=== PATIENT | male | born 1965 | race Caucasian/White ===

== ENCOUNTER 2017-09-19 07:46 | Outpatient (CLI) | payer OTHER ==
[2017-09-19] MEDS ORDERED: Iopamidol 370 76% 100 ML VIAL ONE (12:51)
== END 2017-09-19 07:47 | disposition home or self-care (01) ==
LOC: BICCT 07:46
PROVIDERS: ATTEND Urology
DX: N20.0 Calculus of kidney (principal); R31.0 Gross hematuria; N28.1 Cyst of kidney, acquired; K80.20 Calculus of gallbladder without cholecystitis without obstruction; I31.1 Chronic constrictive pericarditis
CPT/HCPCS: 74178

== ENCOUNTER 2017-10-22 11:27 | Outpatient (CLI) | payer OTHER | END 2017-10-22 11:28 | disposition home or self-care (01) | LOC: BICCT 11:27 | PROVIDERS: ATTEND Urology | DX: N20.2 Calculus of kidney with calculus of ureter (principal); N13.30 Unspecified hydronephrosis; K80.20 Calculus of gallbladder without cholecystitis without obstruction | CPT/HCPCS: 74176 ==

== ENCOUNTER 2018-11-19 12:06 | Outpatient (CLI) | payer OTHER ==
--- NOTE | 2018-11-20 07:48 | RAD ---
"PRELIMINARY REPORT" SUPINE ABDOMEN: HISTORY: Kidney stones. COMPARISON: 06/06/2018 FINDINGS: No evidence of urinary tract calcification identified. Bowel gas and stool obscure both vineet al outlines, especially on the left. Phleboliths in the pelvis are again noted. No interval change apparent. Transcribed Date/Time: 11/20/2018 7:46 AM
== END 2018-11-19 12:07 | disposition home or self-care (01) ==
LOC: RAD 12:06 → MERGE 12:06 → RAD 12:07
PROVIDERS: ATTEND Urology
DX: N20.0 Calculus of kidney (principal); R31.0 Gross hematuria
CPT/HCPCS: 36415; 74018; 80048; 81001; 87086

== ENCOUNTER 2018-12-05 14:36 | Emergency (ER) | payer OTHER ==
[~2018-12-05 14:36] MED LIST: ISOVUE-370 76%-LOCM 1 ML ONE
[2018-12-05] MEDS ORDERED: Morphine 4 MG/ML VIAL ONE (16:13)
[2018-12-05] MEDS ORDERED: Ondansetron PF 4 MG/2 ML Vial ONE (16:13)
[2018-12-05 16:24] LABS: Bilirubin Negative (Negative); Blood, Urine Negative (Negative); Clarity Clear (Clear); Glucose, Urine (Dipstick) Normal (Negative); Leukocyte Negative Leu/uL (Negative); Nitrite Negative (Negative); Protein, Urine (Dipstick) Negative (Neg-Trace); Urobilinogen Normal mg/dL (Less than 2)
[2018-12-05 17:32] LABS: #Eosinphils 0.2 thou/uL (0.0-0.7); #Monocytes 0.5 thou/uL (0.11-0.59); #Neutrophils 5.2 thou/uL (1.40-6.50); %Basophils 0.5 % (0.0-1.0); %Eosinophils 1.8 % (0.0-10.0); %Lymphocytes 33.6 % (21.0-51.0); %Monocytes 5.8 % (0.0-10.0); %Neutrophils 58.2 % (42.0-75.0); Hemoglobin 14.6 g/dL (14.0-18.0); Mean Corpuscular HGB CONC 33.9 g/dL (32.0-36.0); Mean Corpuscular Hemoglobin 29.2 pg (27.0-31.0); Mean Corpuscular Volume 86.1 fL (78.0-98.0); Mean Platelet Volume 6.9 fL (7.4-10.4); Platelet Count 326 thou/uL (130-400); RBC Distribution Width 12.5 % (11.5-14.5); Red Blood Cell (RBC) Count 4.98 mill/uL (4.70-6.10); White Blood Cell (WBC) Count 8.9 thou/uL (4.8-10.8)
--- NOTE | 2018-12-05 17:38 | CT ---
CT ABDOMEN WITH CONTRAST CT PELVIS WITH CONTRAST: DATE: 12/05/2018 HISTORY: 53-year-old male with left-sided abdominal pain and left flank pain. Nausea. COMPARISON: 06/06/2018 TECHNIQUE: IV injection of iodinated contrast media: administered. Oral contrast media:Not administered FINDINGS: Punctate 2 mm calculus at lower pole calyx of right kidney, visible only on coronal and sagittal rosi nstructions. No hydronephrosis bilaterally. Nephrograms are bilaterally symmetrical, with no evidence of pyeloneph ritis. Calcified gallstones are visible. No signs of acute cholecystitis. Unremarkable pancreas, spleen, adrenals, abdominal aorta, urinary bladder. Suture lines around cecum and distal ileum. Appendix not identified. No signs of colonic diverticulitis. No small bowel dilation. No ascites or pneumoperitoneum. Lung bas es clear. No abscess in intrapelvic or intra-abdominal cavity. Within the limitations of comparing this contrast enhanced CT with the previous noncontrast CT, no significant interval change is detecte d. IMPRESSION: 1. No acute findings. 2. Cholelithiasis. 3. Postsurgical changes of cecum and distal ileum. 4. Mild nephrolithiasis consisting of a single punctate 2 mm right renal calculus.
[2018-12-05 17:46] LABS: ALT (SGPT) 24 U/L (8-55); AST (SGOT) 15 U/L (5-34); Albumin 4.1 g/dL (3.5-5.0); Alkaline Phosphatase 63 U/L (40-110); Anion Gap 11 mmol/L (10-20); BUN (Urea Nitrogen) 12 mg/dL (8.4-25.7); Bilirubin, Total 0.6 mg/dL (0.2-1.2); Calc. Creatinine Clearance 0 mL/min (70-130); Calcium 8.1 mg/dL (7.8-10.44); Carbon Dioxide 26 mmol/L (22-29); Chloride 105 mmol/L (98-107); Estimated GFR-MDRD 85; Globulin 2.8 g/dL (2.4-3.5); Glucose 84 mg/dL (70-105); Lipase 29 U/L (8-78); Potassium 3.8 mmol/L (3.5-5.1); Protein, Total 6.9 g/dL (6.0-8.3); Sodium 138 mmol/L (136-145)
== END 2018-12-05 18:30 | disposition home or self-care (01) ==
LOC: ERS 14:36
DX: K80.20 Calculus of gallbladder without cholecystitis without obstruction (principal)
CPT/HCPCS: 36415; 74177; 80053; 81003; 83605; 83690; 85025; 96361; 96374; 96375; J2270; J2405; Q9966

== ENCOUNTER 2019-03-04 07:12 | Day surgery (SDC) | payer OTHER ==
[2019-03-03 09:13] VITALS: BMI 21.6
[2019-03-04 10:09] LABS: #Eosinphils 0.1 thou/uL (0.0-0.7); #Lymphocytes 1.6 thou/uL (1.20-3.40); #Monocytes 0.5 thou/uL (0.11-0.59); #Neutrophils 5.3 thou/uL (1.40-6.50); %Basophils 0.2 % (0.0-1.0); %Eosinophils 1.4 % (0.0-10.0); %Lymphocytes 21.8 % (21.0-51.0); %Monocytes 6.2 % (0.0-10.0); %Neutrophils 70.5 % (42.0-75.0); Hemoglobin 14.4 g/dL (14.0-18.0); Mean Corpuscular HGB CONC 33.8 g/dL (32.0-36.0); Mean Corpuscular Hemoglobin 29.6 pg (27.0-31.0); Mean Corpuscular Volume 87.7 fL (78.0-98.0); Mean Platelet Volume 7.3 fL (7.4-10.4); Platelet Count 303 thou/uL (130-400); RBC Distribution Width 12.2 % (11.5-14.5); Red Blood Cell (RBC) Count 4.87 mill/uL (4.70-6.10); White Blood Cell (WBC) Count 7.6 thou/uL (4.8-10.8)
[2019-03-04] MEDS ORDERED: PHENYLEPHRINE-NS 100 MCG/ML 10 ML SYRINGE ONE (10:20)
[2019-03-04] MEDS ORDERED: Ropivacaine 0.2% HCl/PF (40 MG/20 ML VIAL) ONE (10:20)
[2019-03-04] MEDS ORDERED: Ketorolac Tromethamine 30 MG/ML VIAL ONE (10:20)
[2019-03-04] MEDS ORDERED: ePHEDrine/0.9% NaCl/PF SYRINGE 50 mg/10 ml ONE (10:20)
[2019-03-04] MEDS ORDERED: PROPOFOL 200 MG/20 ML VIAL ONE (10:20)
[2019-03-04] MEDS ORDERED: Ondansetron PF 4 MG/2 ML Vial ONE (10:20)
[2019-03-04] MEDS ORDERED: diphenhydrAMINE 50 MG/ML VIAL ONE (10:20)
[2019-03-04] MEDS ORDERED: Dexamethasone 20 MG/5 ML VIAL ONE (10:20)
[2019-03-04] MEDS ORDERED: Ropivacaine 0.5% HCl/PF (150 MG/30 ML VIAL) ONE (10:20)
[2019-03-04] MEDS ORDERED: Fentanyl 100 MCG/2 ML VIAL ONE ×2 (10:38→12:21)
[2019-03-04] MEDS ORDERED: Midazolam HCl 2 mg/2 ml Vial ONE (10:38)
[2019-03-04] MEDS ORDERED: Zolpidem Tartrate 5 MG TAB PO PRN (11:25)
[2019-03-04] MEDS ORDERED: Ropivacaine 0.2% 550 ML 550 ML NERVE BLCK SCH (11:25)
[2019-03-04] MEDS ORDERED: traMADol HCl 50 MG TAB PO PRN ×2 (11:25)
[2019-03-04] MEDS ORDERED: HYDROcodone/Acetaminophen 10/325 mg Tablet PO PRN ×2 (11:25)
[2019-03-04] MEDS ORDERED: Promethazine HCl 25 MG/ML VIAL IM PRN (11:25)
[2019-03-04] MEDS ORDERED: Fentanyl 100 MCG/2 ML VIAL SLOW IVP PRN (11:25)
[2019-03-04] MEDS ORDERED: Ondansetron PF 4 MG/2 ML Vial IVP PRN (11:25)
[2019-03-04] MEDS ORDERED: Acetaminophen 325 MG TAB PO PRN (11:26)
[2019-03-04] MEDS ORDERED: Ketorolac Tromethamine 30 MG/ML VIAL IVP SCH (12:00)
[2019-03-04] MEDS ORDERED: Bupivacaine PF 0.5% 30 ML VIAL ONE (12:16)
[2019-03-04] MEDS ORDERED: Bacitracin Zinc Ointment 30 gm TUBE ONE (12:17)
[2019-03-04] MEDS ORDERED: HYDROcodone/Acetaminophen 5/325 mg Tablet ONE (18:29)
--- NOTE | 2019-03-05 00:44 | OP ---
DATE OF PROCEDURE: 03/04/2019 PREOPERATIVE DIAGNOSES: 1. Left wrist synovitis. 2. Left wrist central triangular fibrocartilage complex tear. 3. Left possible scapholunate ligament tear. 4. Ulnocarpal impingement with ulnar positive wrist by 2 to 2.5 mm more than the opposite side. POSTOPERATIVE DIAGNOSES: 1. Left wrist synovitis. 2. Left wrist central triangular fibrocartilage complex tear. 3. Left possible scapholunate ligament tear. 4. Ulnocarpal impingement with ulnar positive wrist by 2 to 2.5 mm more than the opposite side. FINDINGS: 1. No scapholunate interosseous membrane tear, only a partial small 3 mm opening in the lunate triquetral ligament on its direct central surface and not the volar aspect or the dorsal aspect. No instability. 2. 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 3. A longitudinal tear with thick edge. When debrided, it was still only 1 to 2 mm wide at its greatest and was repairable as it was central to peripheral and dorsal. 4. Definite ulnocarpal impingement as well. PROCEDURES PERFORMED: 1. Left wrist arthroscopic synovectomy. 2. Left wrist arthroscopic debridement of chondral lesions lunate. 3. Left wrist open ulnar shortening and RAYHACK osteotomy. 4. Left wrist open triangular fibrocartilage repair. 5. Left wrist C-arm supervision. 6. Left wrist application of long-arm splint. ESTIMATED BLOOD LOSS: 20 mL. SPECIMENS: None. TOURNIQUET TIME: 120 minutes total (47 minutes up, then deflated for 20 minutes and then up again for 73 minutes). INDICATIONS: The patient had MRI findings exam consistent with triangular fibrocartilage tear. It appeared more central, but did not seem widely displaced, had a dye leak which appeared to be through the scapholunate area, but the patient had definite ulnocarpal impingement clinically and radiographically with a 2.5 mm more ulnar positive ulna than seen on the contralateral side. He had no relief with conservative treatment to include bracing, therapy, and medications. DESCRIPTION OF PROCEDURE: After successful general endotracheal anesthesia, the limb was prepped and draped. Time-out was done appropriately. The limb was then placed in a finger traction with arthroscopic arm perez well padded after prepping and draping sterilely. We then established the 3, 4, 6U, and 6R portals and initially visualization from the 3, 4 portal, we visualized the chondral tear on the ulnar aspect of the lunate, there was some question of fraying versus complete tear with probing of the lunate to triquetral ligament and there was definite thick chondral band over a 1.5 cm long triangular fibrocartilage tear that began centrally, but then appeared to transect more dorsal and peripheral. The ulnar aspects were negative. After we finished the synovectomy, we visualized I was able to move the chondromalacia off the ulnar aspect of the lunate and we could visualize that the joint was not unstable at the lunotriquetral area or the tear was not complete. For this reason, no undue pressure over the carpal repairs were, we finished the synovectomy complete of the wrist on the left side and debrided the tear, but felt that it might respond to fixation. We then removed the arthroscope, exsanguinated the limb, inflated the tourniquet, knowing about the ulnocarpal impingement after debridement of chondromalacia through the shaver and the scope, we then made our zigzag incision just long enough to place the RAYHACK plate, carried it down to periosteum and stripped it. Then, we put the plate on the bone. We did a standard drill, measured tap screw technique, put 3 holes proximal, 1 hole very distal after attaching to the central portion of palmar ulna where the best flat surface was located. We then used 2.5 drill bit along with a tap to place a strong screw purchase possible through the cut guide. We then performed a cut of 2 mm, removed it, removed the wafer created by this and then replaced the drill holes with the plate again. With the plate itself at this time, it was very secure, and we were able to place the coaptation device without complication and coapted the entire area. It was nearly anatomic position. We then placed a lag screw across it, also 3.5 with drill, measure, tap techniques, and then 3 screws distally. The patient then had the tourniquet deflated. We closed the fascia after obtaining hemostasis at the ulna forearm incision with a running 0 Vicryl, 3-0 Monocryl and nylon was used for the closure of subcutaneous tissue and skin reapproximated with 4-0 nylon interrupted simple pattern. We then reinflated the tourniquet after 20 minutes hiatus, 250 mmHg pressure, made a zigzag incision over the lunate triquetral area. It was here that we saw the tear and pulled the lunate triquetral joint, found it was not unstable. There was only a small 2 mm hole, but it was not unstable, so we did not perform a repair or reconstruction. We had the arthrotomy expanded for better visualization, saw the debrided tear and felt it was debrided enough, but had since it was central and longitudinal toward the dorsal ulnar aspect of the TFCC. We then placed multiple [id number] Prolene, tied them on themselves in a standard method for arthroscopic procedures and then the patient had hemostasis and we closed the joint wound as well. We could see the synovectomy was completely done and there was excellent visualization. We found no hole volarly with probing and palmar flexion. We then were able to reapproximate the TFCC tear to a point where all was disappeared using 4 sutures of 4-0 Prolene. The patient then had the joint capsule closed, 2-0 Vicryl was used in a running fashion, retinaculum repaired at the ECU and with the retinaculum closed, we turned to the skin. We then made a retinaculum repair after the joint repair, joint repair being done with 2-0 Vicryl in the [id number], and the retinacular tear was done with interrupted [id number] using 3-0 Monocryl. We then used 4-0 Monocryl subcutaneous closure with hemostasis remaining, 4-0 nylon for the epidermal closure and we closed the radial portal as well with 4-0 nylon. Bulky dressing was applied. Before the patient's wound was closed, in order to protect the debridement of the lunate triquetral area where we had partial tear, we passed 2 K-wires under C-arm supervision across the lunate triquetrum and to the lunate reduced in this interval and they were radiographically in excellent position. A sugar-tong splint was applied after final epidermal closure at all sites. Since he had a block, no further anesthetic agent was given and the sugar-tong splint was in excellent position. He went to the recovery from operating room without evidence of anesthetic or operative complication. Job ID: [id number]
--- NOTE | 2019-03-06 08:04 | RAD ---
EXAM: XR Forearm Lt 2 View STANDARD DATE: 03/04/2019 12:00 AM INDICATION: Osteotomy of the left arm with TFCC repair COMPARISON: None. FINDIN separate fluoroscopic spot images were submitted of the distal left forearm and left wris t. Submitted images demonstrate obliquely oriented osteotomy of the distal ulnar shaft with plate and screw fixation. The distal radial ulnar joint alignment is neutral. Additional submitted images d emonstrate instrumentation within the distal carpal ulnar joint. Subsequent images demonstrate placement of 2 separate smooth Richardson wires transfixing the triquetrum and lunate. Carpal alignmen t appears within normal limits. The total fluoroscopic time was 42.7 seconds. Total exposure was 0.77 mGy. IMPRESSION:Intraoperative C-arm spot films from a distal left ulna osteotomy and TFCC repair.
== END 2019-03-04 18:45 | disposition home or self-care (01) ==
LOC: SDC 07:12
PROVIDERS: ATTEND Orthopaedic Surgery Hand Surgery
PROC: 0RQP0ZZ Repair Left Wrist Joint, Open Approach (ICD-10-PCS; principal; 2019-03-04)
PROC: 0RBP4ZZ Excision of Left Wrist Joint, Percutaneous Endoscopic Approach (ICD-10-PCS; principal; 2019-03-04)
PROC: 0PHL04Z Insertion of Internal Fixation Device into Left Ulna, Open Approach (ICD-10-PCS; principal; 2019-03-04)
PROC: 0PBL0ZZ Excision of Left Ulna, Open Approach (ICD-10-PCS; principal; 2019-03-04)
DX: S63.592A Other specified sprain of left wrist, initial encounter (principal); M65.88 Other synovitis and tenosynovitis, other site; M25.832 Other specified joint disorders, left wrist; M94.232 Chondromalacia, left wrist; Z88.8 Allergy status to other drugs, medicaments and biological substances
CPT/HCPCS: 76000; 85025; A4306; J0690; J2250; J2795; J3010; S0020

== ENCOUNTER 2019-05-02 05:43 | Day surgery (SDC) | payer OTHER ==
[2019-05-01 14:52] VITALS: BMI 21.6
[2019-05-02 06:25] LABS: #Basophils 0.1 thou/uL (0.0-0.2); #Eosinphils 0.3 thou/uL (0.0-0.7); #Lymphocytes 2.6 thou/uL (1.20-3.40); #Monocytes 0.5 thou/uL (0.11-0.59); #Neutrophils 5.9 thou/uL (1.40-6.50); %Basophils 0.7 % (0.0-1.0); %Eosinophils 2.8 % (0.0-10.0); %Lymphocytes 28.2 % (21.0-51.0); %Monocytes 5.5 % (0.0-10.0); %Neutrophils 62.9 % (42.0-75.0); Hemoglobin 14.5 g/dL (14.0-18.0); Mean Corpuscular Hemoglobin 29.6 pg (27.0-31.0); Mean Corpuscular Volume 89.6 fL (78.0-98.0); Mean Platelet Volume 7.4 fL (7.4-10.4); Platelet Count 329 thou/uL (130-400); RBC Distribution Width 12.7 % (11.5-14.5); Red Blood Cell (RBC) Count 4.92 mill/uL (4.70-6.10); White Blood Cell (WBC) Count 9.3 thou/uL (4.8-10.8)
[2019-05-02] MEDS ORDERED: Bacitracin Zinc Ointment 30 gm TUBE ONE (06:36)
[2019-05-02] MEDS ORDERED: Bupivacaine PF 0.5% 30 ML VIAL ONE (06:36)
[2019-05-02] MEDS ORDERED: Midazolam HCl 2 mg/2 ml Vial ONE (06:43)
[2019-05-02] MEDS ORDERED: Fentanyl 100 MCG/2 ML VIAL ONE (06:43)
[2019-05-02] MEDS ORDERED: Meperidine HCl/PF 25 MG/ML VIAL ONE (08:37)
--- NOTE | 2019-05-02 09:36 | OP ---
DATE OF PROCEDURE: 05/02/2019 PREOPERATIVE DIAGNOSIS: Left wrist status lunate triquetrum K-wires deep, finding deep wires to the point, one was buried underneath the tendon, extensor carpi ulnaris. PROCEDURES PERFORMED: 1. Left wrist removal of deep wire. 2. C-arm supervision. COMPLICATIONS: None. TOURNIQUET TIME: 16 minutes. INDICATION: The patient is now three months after a medial triquetrum ligament repair, triangular fibrocartilage procedure, debridement, resection, and ulnar shortening. He has had excellent result today, but one wire started to protrude and we moved to surgery after two weeks because of marked pain. DESCRIPTION OF PROCEDURE: After successful general endotracheal anesthesia, limb prepped and draped. C-arm was brought to the field. We identified the wires via C-arm in triangulation pattern. We made a 1 cm incision and carried it through skin and subcutaneous tissue. One K-wire was already subcutaneous, the other K-wire, took a while to locate it, it was buried underneath the tendon without violating the tendon. We minimally opened the sheath, found the wire in the frontal sagittal plane and removed it slowly. We irrigated the area. We released the tourniquet. We closed it with a simple 3-0 nylon, 4-0 nylon in a simple pattern, and placed a soft dressing on the wound. We gave him a total of 10 mL of 0.5% Marcaine block, 7 mL before incision and 3 after. He left the operating room without evidence of anesthetic or operative complication. Job ID: [id number]
--- NOTE | 2019-05-02 09:56 | RAD ---
INTRAOPERATIVE IMAGING OF THE LEFT WRIST: DATE: 04/27/2019. COMPARISON: None. HISTORY: Hardware removal. FINDINGS: Partially visualized fusion hardware of the distal ulnar shaft noted. Detailed assessment is limited on this examination secondary to technique. No acute osseous abnormality. IMPRESSION: No acute findings. POS: TPC
[2019-05-02] MEDS ORDERED: Dexamethasone 20 MG/5 ML VIAL ONE (11:25)
[2019-05-02] MEDS ORDERED: Ondansetron PF 4 MG/2 ML Vial ONE (11:25)
[2019-05-02] MEDS ORDERED: PROPOFOL 200 MG/20 ML VIAL ONE (11:25)
[2019-05-02] MEDS ORDERED: diphenhydrAMINE 50 MG/ML VIAL ONE (11:25)
[2019-05-02] MEDS ORDERED: Ketorolac Tromethamine 30 MG/ML VIAL ONE (11:25)
== END 2019-05-02 10:18 | disposition home or self-care (01) ==
LOC: SDC 05:43
PROVIDERS: ATTEND Orthopaedic Surgery Hand Surgery
PROC: 0PPN04Z Removal of Internal Fixation Device from Left Carpal, Open Approach (ICD-10-PCS; principal; 2019-05-02)
DX: T84.84XA Pain due to internal orthopedic prosthetic devices, implants and grafts, initial encounter (principal); T84.290A Other mechanical complication of internal fixation device of bones of hand and fingers, initial encounter; M77.12 Lateral epicondylitis, left elbow; M79.2 Neuralgia and neuritis, unspecified; K52.9 Noninfective gastroenteritis and colitis, unspecified; Z87.891 Personal history of nicotine dependence; Z79.899 Other long term (current) drug therapy; Z88.1 Allergy status to other antibiotic agents; Z90.49 Acquired absence of other specified parts of digestive tract
CPT/HCPCS: 76000; 85025; J0690; J1100; J1200; J1885; J2175; J2250; J2405; J2704; J3010; J3490; S0020

== ENCOUNTER 2019-06-02 12:48 | Emergency (ER) | payer OTHER ==
[2019-06-02 13:29] LABS: Bacteria/HPF None Seen HPF (None Seen); Bilirubin Negative (Negative); Blood, Urine Negative (Negative); Clarity Clear (Clear); Glucose, Urine (Dipstick) Normal (Negative); Leukocyte 75 Leu/uL (Negative); Nitrite Negative (Negative); Protein, Urine (Dipstick) Negative (Neg-Trace); RBC/HPF 0-3 HPF (0-3); Squamous Epithelial None Seen HPF (0-3); Urobilinogen Normal mg/dL (Less than 2)
[2019-06-02] MEDS ORDERED: Morphine 4 MG/ML VIAL ONE (13:38)
[2019-06-02 13:51] LABS: #Eosinphils 0.1 thou/uL (0.0-0.7); #Lymphocytes 2.3 thou/uL (1.20-3.40); #Monocytes 0.5 thou/uL (0.11-0.59); #Neutrophils 4.3 thou/uL (1.40-6.50); %Basophils 0.1 % (0.0-1.0); %Lymphocytes 32.3 % (21.0-51.0); %Monocytes 7.4 % (0.0-10.0); %Neutrophils 59.3 % (42.0-75.0); Hemoglobin 14.1 g/dL (14.0-18.0); Mean Corpuscular HGB CONC 33.8 g/dL (32.0-36.0); Mean Corpuscular Hemoglobin 29.6 pg (27.0-31.0); Mean Corpuscular Volume 87.6 fL (78.0-98.0); Platelet Count 370 thou/uL (130-400); RBC Distribution Width 12.3 % (11.5-14.5); Red Blood Cell (RBC) Count 4.75 mill/uL (4.70-6.10); White Blood Cell (WBC) Count 7.2 thou/uL (4.8-10.8)
[2019-06-02 14:13] LABS: ALT (SGPT) 38 U/L (8-55); AST (SGOT) 24 U/L (5-34); Albumin 4.3 g/dL (3.5-5.0); Alkaline Phosphatase 71 U/L (40-110); Anion Gap 14 mmol/L (10-20); BUN (Urea Nitrogen) 13 mg/dL (8.4-25.7); Bilirubin, Total 0.9 mg/dL (0.2-1.2); Calc. Creatinine Clearance 0 mL/min (70-130); Calcium 8.4 mg/dL (7.8-10.44); Carbon Dioxide 26 mmol/L (22-29); Chloride 104 mmol/L (98-107); Estimated GFR-MDRD 73; Globulin 2.8 g/dL (2.4-3.5); Glucose 79 mg/dL (70-105); Lipase 33 U/L (8-78); Potassium 3.8 mmol/L (3.5-5.1); Protein, Total 7.1 g/dL (6.0-8.3); Sodium 140 mmol/L (136-145)
--- NOTE | 2019-06-02 14:29 | ULT ---
GALLBLADDER ULTRASOUND: HISTORY: Right upper quadrant abdominal pain FINDINGS: The liver demonstrates increased echotexture without focal mass or intrahepatic biliary ductal dilata tion. Multiple shadowing gallstones are seen without gallbladder wall thickening or pericholecystic fluid a re seen. The right kidney and pancreas are normal. The common duct [id number] in diameter. No free fluid is seen in the Espinosa's pouch. IMPRESSION: 1. Fatty liver 2. Cholelithiasis
== END 2019-06-02 14:27 | disposition home or self-care (01) ==
LOC: ERS 12:48
DX: K80.20 Calculus of gallbladder without cholecystitis without obstruction (principal); Z87.442 Personal history of urinary calculi; Z79.899 Other long term (current) drug therapy
CPT/HCPCS: 76705; 80053; 81003; 81015; 83690; 85025; 96361; 96374; J2270

== ENCOUNTER 2019-08-01 05:24 | Day surgery (SDC) | payer OTHER ==
[2019-07-30 10:17] VITALS: BMI 21.6
[2019-08-01] MEDS ORDERED: Lidocaine 1% w/Epinephrine 1:100K 20 ML VIAL ONE (06:54)
[2019-08-01] MEDS ORDERED: Bupivacaine 0.25% HCL 30 ML VIAL ONE (06:54)
[2019-08-01] MEDS ORDERED: Fentanyl 250 MCG/5 ML VIAL ONE (06:56)
[2019-08-01] MEDS ORDERED: Meperidine HCl/PF 25 MG/ML VIAL ONE (08:44)
[2019-08-01] MEDS ORDERED: HYDROcodone/Acetaminophen 5/325 mg Tablet ONE (09:31)
[2019-08-01] MEDS ORDERED: Dexamethasone 20 MG/5 ML VIAL ONE (14:48)
[2019-08-01] MEDS ORDERED: Glycopyrrolate 0.2 MG/ML 5 ML SYRINGE ONE (14:48)
[2019-08-01] MEDS ORDERED: Ondansetron PF 4 MG/2 ML Vial ONE (14:48)
[2019-08-01] MEDS ORDERED: PROPOFOL 200 MG/20 ML VIAL ONE (14:48)
[2019-08-01] MEDS ORDERED: PHENYLEPHRINE-NS 100 MCG/ML 10 ML SYRINGE ONE (14:48)
[2019-08-01] MEDS ORDERED: Lidocaine 1% PF 5 ML VIAL ONE (14:48)
[2019-08-01] MEDS ORDERED: Ketorolac Tromethamine 30 MG/ML VIAL ONE (14:48)
[2019-08-01] MEDS ORDERED: Rocuronium Bromide 10 MG/ML (10ML VIAL) ONE (14:48)
--- NOTE | 2019-08-01 14:52 | OP ---
DATE OF PROCEDURE: 08/01/2019 PREOPERATIVE DIAGNOSIS: Symptomatic cholelithiasis. PROCEDURE PERFORMED: Laparoscopic cholecystectomy. INDICATIONS: A 53-year-old male, who has been having epigastric abdominal pain. Ultrasound showed cholelithiasis. FINDINGS: Relatively small contracted gallbladder. There were adhesions present, both periumbilical and around the gallbladder. DESCRIPTION OF PROCEDURE: After informed consent was obtained, the patient was taken to the operating room, given general endotracheal anesthesia, placed in the supine position. Abdomen was prepped and draped in usual fashion. Local anesthesia was infiltrated subcutaneously and deep, and a 5-mm incision was performed in right subcostal. Veress needle inserted. Drop test performed. Pneumoperitoneum was created to a volume of 2 L of carbon dioxide. Utilizing a bladeless 5-mm trocar and 0-degree laparoscope, direct visual entry into the abdominal cavity was performed. Pneumoperitoneum was created to a pressure of 15 mmHg. There was bowel against the anterior abdominal wall we had a low midline incision. I went above this area and placed a 12-mm port in the midline. Then, two other 5-mm ports subcostal. The gallbladder was grasped, advanced superiorly and the adhesions were lysed using blunt and sharp dissection. The peritoneum opened and the cystic duct and cystic artery in critical view dissected out. The gallbladder then removed from its fossa utilizing electrocautery, removed from the abdomen through the umbilical port. Hemostasis was assured. Trocars and retractors were removed. The fascia closed with interrupted 0 Vicryl suture. The skin closed with interrupted 4-0 Rapide. Dermabond applied. The patient tolerated the procedure well, transferred to Recovery in good condition. Sponge and needle count verified correct x2. Job ID: [id number]
== END 2019-08-01 10:07 | disposition home or self-care (01) ==
LOC: SDC 05:24
PROVIDERS: ATTEND Surgery
PROC: 0FT44ZZ Resection of Gallbladder, Percutaneous Endoscopic Approach (ICD-10-PCS; principal; 2019-08-01)
DX: K80.10 Calculus of gallbladder with chronic cholecystitis without obstruction (principal); K52.9 Noninfective gastroenteritis and colitis, unspecified; Z79.899 Other long term (current) drug therapy; Z87.891 Personal history of nicotine dependence; Z88.1 Allergy status to other antibiotic agents
CPT/HCPCS: 88304; J0694; J1100; J1885; J2001; J2175; J2405; J2704; J3010; S0020

== ENCOUNTER 2020-05-20 12:21 | Emergency (ER) | payer OTHER ==
[2020-05-20 12:59] LABS: #Eosinphils 0.2 thou/uL (0.0-0.7); #Lymphocytes 2.2 thou/uL (1.20-3.40); #Monocytes 0.5 thou/uL (0.11-0.59); #Neutrophils 5.3 thou/uL (1.40-6.50); %Basophils 0.3 % (0.0-1.0); %Eosinophils 2.4 % (0.0-10.0); %Lymphocytes 26.4 % (21.0-51.0); %Monocytes 6.1 % (0.0-10.0); %Neutrophils 64.9 % (42.0-75.0); Hemoglobin 13.4 g/dL (14.0-18.0); Mean Corpuscular HGB CONC 32.5 g/dL (32.0-36.0); Mean Corpuscular Hemoglobin 28.1 pg (27.0-31.0); Mean Corpuscular Volume 86.4 fL (78.0-98.0); Platelet Count 325 thou/uL (130-400); RBC Distribution Width 12.4 % (11.5-14.5); Red Blood Cell (RBC) Count 4.75 mill/uL (4.70-6.10); White Blood Cell (WBC) Count 8.2 thou/uL (4.8-10.8)
[2020-05-20 13:05] LABS: INR-International Normal Ratio 0.9; PTT 28.3 sec (22.9-36.1); Prothrombin Time 12.2 sec (12.0-14.7)
[2020-05-20 13:21] LABS: ALT (SGPT) 11 U/L (8-55); AST (SGOT) 14 U/L (5-34); Alkaline Phosphatase 69 U/L (40-110); Anion Gap 12 mmol/L (10-20); BUN (Urea Nitrogen) 15 mg/dL (8.4-25.7); Bilirubin, Total 0.4 mg/dL (0.2-1.2); Calc. Creatinine Clearance 0 mL/min (70-130); Calcium 8.2 mg/dL (7.8-10.44); Carbon Dioxide 25 mmol/L (22-29); Chloride 110 mmol/L (98-107); Globulin 2.7 g/dL (2.4-3.5); Glucose 97 mg/dL (70-105); Potassium 3.9 mmol/L (3.5-5.1); Protein, Total 6.7 g/dL (6.0-8.3); Sodium 143 mmol/L (136-145)
[2020-05-20] MEDS ORDERED: HYDROcodone/Acetaminophen 10/325 mg Tablet ONE (13:24)
[2020-05-20] MEDS ORDERED: Iopamidol-370 76% 500 ML 1 ML ONE (14:50)
== END 2020-05-20 15:04 | disposition home or self-care (01) ==
LOC: ERS 12:21
DX: K92.1 Melena (principal)
CPT/HCPCS: 36415; 74177; 80053; 82270; 85025; 85610; 85730; 86850; 86900; 86901; Q9967

== ENCOUNTER 2020-11-19 08:43 | Emergency (ER) | payer OTHER ==
[2020-11-19] MEDS ORDERED: Ketorolac Tromethamine 30 MG/ML VIAL ONE (10:41)
== END 2020-11-19 11:40 | disposition home or self-care (01) ==
LOC: ERS 08:43
DX: S16.1XXA Strain of muscle, fascia and tendon at neck level, initial encounter (principal); S39.012A Strain of muscle, fascia and tendon of lower back, initial encounter; V49.9XXA Car occupant (driver) (passenger) injured in unspecified traffic accident, initial encounter; M19.90 Unspecified osteoarthritis, unspecified site; I10 Essential (primary) hypertension
CPT/HCPCS: 72100; 72125; 96372; J1885

== ENCOUNTER 2021-06-03 09:14 | Outpatient (CLI) | payer OTHER ==
[2021-06-03 11:23] LABS: Hemoglobin 12.5 g/dL (13.5-17.5); Mean Corpuscular HGB CONC 30.9 g/dL (32.0-36.0); Mean Corpuscular Hemoglobin 27.7 pg (27.0-33.0); Mean Corpuscular Volume 89.4 fl (81.2-95.1); Mean Platelet Volume 9.6 fl (7.4-10.4); Platelet Count 371 10x3/uL (150-450); RBC Distribution Width 13.2 % (11.5-14.5); Red Blood Cell (RBC) Count 4.52 10x6/uL (4.32-5.72); White Blood Cell (WBC) Count 7.4 10x3/uL (3.5-10.5)
[2021-06-03 11:30] LABS: INR-International Normal Ratio 0.9; PTT 25.6 sec (22.0-33.0); Prothrombin Time 10.2 sec (9.5-12.1)
[2021-06-03 11:37] LABS: Anion Gap 14 mmol/L (10-20); BUN (Urea Nitrogen) 16 mg/dL (8.4-25.7); Calc. Creatinine Clearance 0 mL/min (70-130); Calcium 8.4 mg/dL (7.8-10.44); Carbon Dioxide 28 mmol/L (22-29); Chloride 106 mmol/L (98-107); Glucose 79 mg/dL (70-105); Potassium 3.7 mmol/L (3.5-5.1); Sodium 144 mmol/L (136-145)
[2021-06-03 18:47] LABS: SARS-CoV-2 PCR by NAA Not Detected (NotDetected)
== END 2021-06-03 09:15 | disposition home or self-care (01) ==
LOC: LABBT 09:14
PROVIDERS: ATTEND Urology
DX: Z01.818 Encounter for other preprocedural examination (principal); Z12.5 Encounter for screening for malignant neoplasm of prostate; N20.2 Calculus of kidney with calculus of ureter; R35.0 Frequency of micturition; K80.20 Calculus of gallbladder without cholecystitis without obstruction; Z20.822 Contact with and (suspected) exposure to COVID-19
CPT/HCPCS: 80048; 85027; 85610; 85730; 93005; 93010; U0003; U0005

== ENCOUNTER 2022-03-31 13:56 | Outpatient (CLI) | payer OTHER ==
[2022-03-31 14:33] LABS: #Basophils 0.1 10x3/uL (0.0-0.2); #Eosinphils 0.2 10x3/uL (0.0-0.5); #Monocytes 0.5 10x3/uL (0.0-1.1); #Neutrophils 5.1 10x3/uL (1.5-8.4); %Basophils 0.7 % (0.0-2.0); %Lymphocytes 30.4 % (18.0-47.0); %Monocytes 5.7 % (0.0-10.0); Hemoglobin 13.4 g/dL (13.5-17.5); Mean Corpuscular HGB CONC 33.2 g/dL (32.0-36.0); Mean Corpuscular Hemoglobin 28.2 pg (27.0-33.0); Mean Corpuscular Volume 85.1 fl (81.2-95.1); Mean Platelet Volume 9.1 fl (7.4-10.4); Platelet Count 362 10x3/uL (150-450); RBC Distribution Width 13.7 % (11.5-14.5); Red Blood Cell (RBC) Count 4.75 10x6/uL (4.32-5.72); White Blood Cell (WBC) Count 8.4 10x3/uL (3.5-10.5)
== END 2022-03-31 13:57 | disposition home or self-care (01) ==
LOC: LABBT 13:56
PROVIDERS: ATTEND Orthopaedic Surgery Hand Surgery
DX: Z01.812 Encounter for preprocedural laboratory examination (principal)
CPT/HCPCS: 85025

== ENCOUNTER 2022-04-04 05:54 | Day surgery (SDC) | payer OTHER ==
[2022-04-03 10:28] VITALS: BMI 22.3
[2022-04-04] MEDS ORDERED: Fentanyl 100 MCG/2 ML VIAL ONE (08:47)
[2022-04-04] MEDS ORDERED: Midazolam HCl 2 mg/2 ml Vial ONE (08:47)
[2022-04-04] MEDS ORDERED: Bupivacaine PF 0.5% 30 ML VIAL ONE ×2 (08:47→08:53)
[2022-04-04] MEDS ORDERED: Neomycin-Polymyxin 1 ML AMP ONE (08:53)
[2022-04-04] MEDS ORDERED: Bacitracin Zinc Ointment 30 gm TUBE ONE (08:53)
[2022-04-04] MEDS ORDERED: EPINEPHrine 1 MG/ML AMP ONE (08:53)
[2022-04-04] MEDS ORDERED: fentaNYL PF 100 MCG/2 ML SYRINGE ONE (09:34)
[2022-04-04] MEDS ORDERED: CEFAZOLIN 2 GM VIAL ONE (09:52)
[2022-04-04] MEDS ORDERED: Sodium Chloride 0.9% 100 ML ONE (09:52)
[2022-04-04] MEDS ORDERED: Lidocaine 1% PF 5 ML VIAL ONE (10:00)
[2022-04-04] MEDS ORDERED: Glycopyrrolate 0.2 MG/ML 5 ML SYRINGE ONE (10:00)
[2022-04-04] MEDS ORDERED: PROPOFOL 200 MG/20 ML VIAL ONE (10:00)
[2022-04-04] MEDS ORDERED: Ondansetron PF 4 MG/2 ML Vial ONE (10:00)
[2022-04-04] MEDS ORDERED: ePHEDrine 50 MG/ML VIAL ONE (10:00)
[2022-04-04] MEDS ORDERED: Dexamethasone 20 MG/5 ML VIAL ONE (10:00)
[2022-04-04] MEDS ORDERED: Ketorolac Tromethamine 30 MG/ML VIAL ONE (13:08)
== END 2022-04-04 14:16 | disposition home or self-care (01) ==
LOC: SDC 05:54
PROVIDERS: ATTEND Orthopaedic Surgery Hand Surgery
PROC: 0RBN4ZZ Excision of Right Wrist Joint, Percutaneous Endoscopic Approach (ICD-10-PCS; principal; 2022-04-04)
PROC: 0RQN0ZZ Repair Right Wrist Joint, Open Approach (ICD-10-PCS; principal; 2022-04-04)
PROC: 0RBN0ZZ Excision of Right Wrist Joint, Open Approach (ICD-10-PCS; principal; 2022-04-04)
DX: S63.591A Other specified sprain of right wrist, initial encounter (principal); M67.431 Ganglion, right wrist; M65.88 Other synovitis and tenosynovitis, other site; K52.9 Noninfective gastroenteritis and colitis, unspecified; Z79.899 Other long term (current) drug therapy; Z88.1 Allergy status to other antibiotic agents
CPT/HCPCS: 88304; C1713; C1894; J0171; J1100; J1885; J2250; J2405; J2704; J3010; J3490; S0020

== ENCOUNTER 2022-08-21 14:47 | Outpatient (CLI) | payer OTHER | END 2022-08-21 14:48 | disposition home or self-care (01) | LOC: BICCT 14:47 | PROVIDERS: ATTEND Urology | DX: N20.0 Calculus of kidney (principal) | CPT/HCPCS: 74176 ==

== ENCOUNTER 2022-10-12 12:11 | Outpatient (CLI) | payer OTHER ==
[2022-10-12 13:02] LABS: Hematocrit 44.4 % (38.8-50.0); Hemoglobin 14.3 g/dL (13.5-17.5); Mean Corpuscular HGB CONC 32.2 g/dL (32.0-36.0); Mean Corpuscular Hemoglobin 28.1 pg (27.0-33.0); Mean Corpuscular Volume 87.4 fl (81.2-95.1); Mean Platelet Volume 9.3 fl (7.4-10.4); Platelet Count 317 10x3/uL (150-450); Red Blood Cell (RBC) Count 5.08 10x6/uL (4.32-5.72); White Blood Cell (WBC) Count 6.9 10x3/uL (3.5-10.5)
[2022-10-12 13:23] LABS: Bilirubin Neg (Negative); Blood, Urine 25 (Negative); Clarity Slightly Cloudy (Clear); Glucose, Urine (Dipstick) Normal (Negative); Ketone, Urine Negative (Negative); Leukocyte 500 (Negative); Nitrite Negative (Negative); Protein, Urine (Dipstick) 30 mg/dl (Neg-Trace); Specific Gravity, Urine 1.025 (1.005-1.030); Urobilinogen Normal mg/dL (Less than 2)
[2022-10-12 13:27] LABS: INR-International Normal Ratio 0.9; PTT 26.1 sec (22.0-33.0)
[2022-10-12 13:30] LABS: Anion Gap 15 mmol/L (10-20); BUN (Urea Nitrogen) 13 mg/dL (8.4-25.7); Calc. Creatinine Clearance 0 mL/min (70-130); Calcium 8.3 mg/dL (7.8-10.44); Carbon Dioxide 25 mmol/L (22-29); Chloride 106 mmol/L (98-107); Estimated GFR 91; Glucose 105 mg/dL (70-105); Potassium 4.2 mmol/L (3.5-5.1); Sodium 142 mmol/L (136-145)
[2022-10-12 13:44] LABS: Squamous Epithelial 0-3 HPF (0-3); WBC/HPF 21-50 HPF (0-3)
[2022-10-12 13:45] LABS: Bacteria/HPF Rare-Few HPF (None Seen); Calcium Oxalate Crystals 2+ HPF (None Seen)
== END 2022-10-12 12:12 | disposition home or self-care (01) ==
LOC: LABBT 12:11
PROVIDERS: ATTEND Urology
DX: Z01.818 Encounter for other preprocedural examination (principal); N20.0 Calculus of kidney
CPT/HCPCS: 80048; 81001; 85027; 85610; 85730; 87086; 93005; 93010

== ENCOUNTER 2022-10-25 05:40 | Day surgery (SDC) | payer OTHER ==
[2022-10-12 12:48] VITALS: BMI 22.3
[2022-10-25] MEDS ORDERED: SUGAMMADEX SODIUM 200 MG/2 ML VIAL ONE (07:04)
[2022-10-25] MEDS ORDERED: fentaNYL PF 100 MCG/2 ML SYRINGE ONE (07:04)
[2022-10-25] MEDS ORDERED: HYDROmorphone 0.5 MG/0.5 ML SYRINGE ONE (07:04)
[2022-10-25] MEDS ORDERED: Iopamidol 15 ML ONE (07:10)
[2022-10-25] MEDS ORDERED: LevoFLOXacin 500 mg/D5W 100 ML BAG ONE (07:18)
[2022-10-25] MEDS ORDERED: Glycopyrrolate 0.2 MG/ML 5 ML SYRINGE ONE (07:28)
[2022-10-25] MEDS ORDERED: Lidocaine 1% PF 5 ML VIAL ONE (07:28)
[2022-10-25] MEDS ORDERED: Dexamethasone 20 MG/5 ML VIAL ONE (07:28)
[2022-10-25] MEDS ORDERED: Rocuronium Bromide 10 MG/ML (10ML VIAL) ONE (07:28)
[2022-10-25] MEDS ORDERED: NEOSTIGMINE 3 MG/3 ML SYR 3 MG/3 ML SYRINGE ONE (07:28)
[2022-10-25] MEDS ORDERED: Ketorolac Tromethamine 30 MG/ML VIAL ONE (07:28)
[2022-10-25] MEDS ORDERED: PROPOFOL 200 MG/20 ML VIAL ONE (07:28)
[2022-10-25] MEDS ORDERED: Ondansetron PF 4 MG/2 ML Vial ONE (07:28)
[2022-10-25] MEDS ORDERED: Phenazopyridine HCl 100 MG TAB ONE (08:34)
== END 2022-10-25 09:29 | disposition home or self-care (01) ==
LOC: SDC 05:40
PROVIDERS: ATTEND Urology
PROC: 0T778DZ Dilation of Left Ureter with Intraluminal Device, Via Natural or Artificial Opening Endoscopic (ICD-10-PCS; principal; 2022-10-25)
PROC: 0TF48ZZ Fragmentation in Left Kidney Pelvis, Via Natural or Artificial Opening Endoscopic (ICD-10-PCS; principal; 2022-10-25)
DX: N20.0 Calculus of kidney (principal)
CPT/HCPCS: 74018; 74420; 82365; 88300; C1747; C1769; C2617; J1100; J1170; J1885; J1956; J2405; J2704; Q9967

== ENCOUNTER 2023-08-08 14:24 | Outpatient (CLI) | payer OTHER ==
[2023-08-08 15:22] LABS: Bilirubin Neg (Negative); Blood, Urine 25 (Negative); Clarity Clear (Clear); Glucose, Urine (Dipstick) Normal (Negative); Ketone, Urine Negative (Negative); Leukocyte 100 (Negative); Nitrite Negative (Negative); Protein, Urine (Dipstick) 30 mg/dl (Neg-Trace); Specific Gravity, Urine 1.015 (1.005-1.030); Urobilinogen Normal mg/dL (Less than 2); pH, Urine 6.5 (5.0-9.0)
[2023-08-08 16:03] LABS: Hematocrit 45.1 % (38.8-50.0); Hemoglobin 15.1 g/dL (13.5-17.5); Mean Corpuscular HGB CONC 33.5 g/dL (32.0-36.0); Mean Corpuscular Hemoglobin 29.3 pg (27.0-33.0); Mean Corpuscular Volume 87.6 fL (81.2-95.1); Platelet Count 346 10x3/uL (150-450); Red Blood Cell (RBC) Count 5.15 10x6/uL (4.32-5.72); White Blood Cell (WBC) Count 7.9 10x3/uL (3.5-10.5)
[2023-08-08 16:10] LABS: INR-International Normal Ratio 0.9; PTT 25.4 sec (22.0-33.0); Prothrombin Time 10.3 sec (9.5-12.1)
[2023-08-08 16:12] LABS: Anion Gap 15 mmol/L (10-20); BUN (Urea Nitrogen) 10 mg/dL (8.4-25.7); Calc. Creatinine Clearance 0 mL/min (70-130); Calcium 8.9 mg/dL (7.8-10.44); Carbon Dioxide 26 mmol/L (22-29); Chloride 107 mmol/L (98-107); Estimated GFR 88; Glucose 93 mg/dL (70-105); Potassium 4.4 mmol/L (3.5-5.1); Sodium 144 mmol/L (136-145)
[2023-08-08 17:01] LABS: WBC/HPF 21-50 HPF (0-3)
[2023-08-08 17:02] LABS: Bacteria/HPF 1+ HPF (None Seen); Calcium Oxalate Crystals 3+ HPF (None Seen); Mucous/LPF 1+ LPF (<2+); Squamous Epithelial None Seen HPF (0-3)
== END 2023-08-08 14:25 | disposition home or self-care (01) ==
LOC: LABBT 14:24
PROVIDERS: ATTEND Urology
DX: Z01.818 Encounter for other preprocedural examination (principal)
CPT/HCPCS: 80048; 81001; 85027; 85610; 85730; 87086; 93005; 93010; G0103

== ENCOUNTER 2023-08-22 06:19 | Day surgery (SDC) | payer OTHER ==
[2023-08-08 15:04] VITALS: BMI 23.0
[2023-08-22] MEDS ORDERED: LevoFLOXacin D5W 500 mg (100 mL) BAG ONE (07:03)
[2023-08-22] MEDS ORDERED: PROPOFOL 20 ML ONE (08:11)
[2023-08-22] MEDS ORDERED: fentaNYL PF 100 MCG/2 ML SYRINGE ONE (08:11)
[2023-08-22] MEDS ORDERED: Lidocaine 2% PF 5 ML VIAL ONE (08:11)
[2023-08-22] MEDS ORDERED: Rocuronium Bromide 10 MG/ML (10ML VIAL) ONE (08:11)
[2023-08-22] MEDS ORDERED: SUGAMMADEX SODIUM 200 MG/2 ML VIAL ONE (09:19)
[2023-08-22] MEDS ORDERED: Iopamidol 30 ML ONE (09:50)
[2023-08-22] MEDS ORDERED: Phenazopyridine HCl 100 MG TAB ONE (10:23)
[2023-08-22] MEDS ORDERED: Oxybutynin 5 MG TAB ONE (10:23)
[2023-08-22] MEDS ORDERED: fentaNYL 50 mcg/mL 1 mL Vial ONE ×2 (10:23→10:49)
[2023-08-22] MEDS ORDERED: Ondansetron PF 4 MG/2 ML Vial ONE (10:23)
[2023-08-22] MEDS ORDERED: Tamsulosin HCl 0.4 MG CAP ONE (10:41)
[2023-08-22] MEDS ORDERED: Promethazine HCl 25 MG/ML VIAL ONE (13:24)
[2023-08-22] MEDS ORDERED: HYDROcodone/Acetaminophen 5/325 mg Tablet ONE (13:37)
== END 2023-08-22 14:24 | disposition home or self-care (01) ==
LOC: SDC 06:19
PROVIDERS: ATTEND Urology
PROC: 0TC18ZZ Extirpation of Matter from Left Kidney, Via Natural or Artificial Opening Endoscopic (ICD-10-PCS; principal; 2023-08-22)
PROC: 0T778DZ Dilation of Left Ureter with Intraluminal Device, Via Natural or Artificial Opening Endoscopic (ICD-10-PCS; principal; 2023-08-22)
DX: N20.0 Calculus of kidney (principal); N40.1 Benign prostatic hyperplasia with lower urinary tract symptoms; R35.0 Frequency of micturition; Z87.442 Personal history of urinary calculi; Z90.49 Acquired absence of other specified parts of digestive tract; Z88.1 Allergy status to other antibiotic agents
CPT/HCPCS: 74018; 74420; C1747; C1769; C2617; J1956; J2001; J2405; J2550; J2704; J3010; Q9967

== ENCOUNTER 2023-08-29 05:38 | Day surgery (SDC) | payer OTHER ==
[2023-08-28 08:55] VITALS: BMI 23.0
[2023-08-29 07:16] LABS: Prothrombin Time 12.7 sec (12.0-14.7)
[2023-08-29 07:17] LABS: PTT 32.2 sec (22.9-36.1)
[2023-08-29] MEDS ORDERED: LevoFLOXacin D5W 500 mg (100 mL) BAG ONE (07:29)
[2023-08-29 07:59] LABS: #Basophils 0.06 10x3/uL (0.0-0.2); %Basophils 0.8 % (0.0-1.0); %Eosinophils 2.3 % (0.0-10.0); %Lymphocytes 30.6 % (21.0-51.0); %Monocytes 6.6 % (0.0-10.0); %Neutrophils 59.3 % (42.0-75.0); Hematocrit 44.8 % (42.0-52.0); Hemoglobin 14.8 g/dL (14.0-18.0); Mean Corpuscular Hemoglobin 28.6 pg (27.0-31.0); Mean Corpuscular Volume 86.5 fL (78.0-98.0); Platelet Count 266 10x3/uL (130-400); RBC Distribution Width 13.2 % (11.5-14.5); Red Blood Cell (RBC) Count 5.18 mill/uL (4.70-6.10)
[2023-08-29] MEDS ORDERED: PROPOFOL 20 ML ONE (08:11)
[2023-08-29] MEDS ORDERED: Lidocaine 2% PF 5 ML VIAL ONE (08:11)
[2023-08-29] MEDS ORDERED: fentaNYL PF 100 MCG/2 ML SYRINGE ONE (08:11)
[2023-08-29] MEDS ORDERED: Dexamethasone 4 mg/ml Vial ONE (08:11)
[2023-08-29] MEDS ORDERED: Ondansetron PF 4 MG/2 ML Vial ONE (08:11)
[2023-08-29] MEDS ORDERED: Midazolam HCl 2 mg/2 ml Vial ONE (08:12)
[2023-08-29 08:18] LABS: Anion Gap 15 mmol/L (10-20); BUN (Urea Nitrogen) 15 mg/dL (8.4-25.7); Calc. Creatinine Clearance 90 mL/min (70-130); Calcium 8.5 mg/dL (7.8-10.44); Carbon Dioxide 26 mmol/L (22-29); Chloride 106 mmol/L (98-107); Estimated GFR 91; Glucose 100 mg/dL (70-105); Potassium 4.1 mmol/L (3.5-5.1); Sodium 143 mmol/L (136-145)
[2023-08-29] MEDS ORDERED: fentaNYL 50 mcg/mL 1 mL Vial ONE (10:09)
== END 2023-08-29 11:25 | disposition home or self-care (01) ==
LOC: SDC 05:38
PROVIDERS: ATTEND Urology
PROC: 0TF4XZZ Fragmentation in Left Kidney Pelvis, External Approach (ICD-10-PCS; principal; 2023-08-29)
DX: N20.0 Calculus of kidney (principal); N26.9 Renal sclerosis, unspecified; R35.0 Frequency of micturition; Z87.442 Personal history of urinary calculi; Z90.49 Acquired absence of other specified parts of digestive tract; Z88.1 Allergy status to other antibiotic agents
CPT/HCPCS: 74018; 80048; 85025; 85610; 85730; J1100; J1956; J2001; J2250; J2405; J2704; J3010

== ENCOUNTER 2024-03-07 17:32 | Inpatient (IN) | payer OTHER ==
[~2024-03-07 17:32] MED LIST changes: -ISOVUE-370 76%-LOCM 1 ML ONE; +Iopamidol-370 76% 500 ML MDV (1 ML CHARGE) ONE
[2024-03-07] MEDS ORDERED: Morphine 2 MG/ML VIAL ONE ×2 (18:13→21:01)
[2024-03-07] MEDS ORDERED: Ondansetron PF 4 MG/2 ML Vial ONE ×2 (18:13→20:00)
[2024-03-07 19:34] LABS: #Basophils 0.06 10x3/uL (0.0-0.2); #Eosinophils Less than 0.03 10x3/uL (0.0-0.7); %Basophils 0.3 % (0.0-1.0); %Eosinophils 0.1 % (0.0-10.0); %Lymphocytes 5.8 % (21.0-51.0); %Monocytes 6.6 % (0.0-10.0); %Neutrophils 86.7 % (42.0-75.0); Hematocrit 44.2 % (42.0-52.0); Hemoglobin 14.2 g/dL (14.0-18.0); Mean Corpuscular HGB CONC 32.1 g/dL (32.0-36.0); Mean Corpuscular Hemoglobin 28.9 pg (27.0-31.0); Mean Corpuscular Volume 89.8 fL (78.0-98.0); Mean Platelet Volume 9.2 fL (7.4-10.4); Platelet Count 320 10x3/uL (130-400); RBC Distribution Width 13.7 % (11.5-14.5); Red Blood Cell (RBC) Count 4.92 mill/uL (4.70-6.10)
[2024-03-07 19:41] LABS: Bacteria/HPF None Seen HPF (None Seen); Bilirubin Negative (Negative); Blood, Urine Negative (Negative); CAUTI Indications for Culture Pelvic or flank pain; Clarity Clear (Clear); Glucose, Urine (Dipstick) Normal (Negative); Ketone, Urine Negative (Negative); Leukocyte 75 Leu/uL (Negative); Nitrite Negative (Negative); Protein, Urine (Dipstick) Negative (Neg-Trace); Squamous Epithelial None Seen HPF (0-3); Urobilinogen Normal mg/dL (Less than 2); WBC/HPF 21-50 HPF (0-3)
[2024-03-07 19:56] LABS: ALT (SGPT) 40 U/L (8-55); AST (SGOT) 54 U/L (5-34); Albumin 3.6 g/dL (3.5-5.0); Alkaline Phosphatase 70 U/L (40-110); Anion Gap 17 mmol/L (10-20); BUN (Urea Nitrogen) 9 mg/dL (8.4-25.7); Calc. Creatinine Clearance 0 mL/min (70-130); Calcium 7.6 mg/dL (7.8-10.44); Carbon Dioxide 20 mmol/L (22-29); Chloride 107 mmol/L (98-107); Estimated GFR 96; Globulin 3.1 g/dL (2.4-3.5); Glucose 89 mg/dL (70-105); Lipase 146 U/L (8-78); Potassium 4.9 mmol/L (3.5-5.1); Protein, Total 6.7 g/dL (6.0-8.3); Sodium 139 mmol/L (136-145)
[2024-03-07 20:00] LABS: Urine Culture Reflex Yes Yes
[2024-03-07] MEDS ORDERED: Sodium Chloride 0.9% 100 ML ONE (20:30)
[2024-03-07] MEDS ORDERED: cefTRIAXone (ROCEPHIN) 1 GM VIAL ONE (20:30)
[2024-03-07] MEDS ORDERED: Benzocaine 20% Spray 60 ML CAN ONE (20:43)
[2024-03-07] MEDS ORDERED: Promethazine 25 MG TAB ONE (21:01)
[2024-03-07] MEDS ORDERED: Promethazine HCl 25 MG/ML VIAL ONE (21:07)
[2024-03-07] MEDS ORDERED: Ipratropium/Albuterol 3 ML NEB NEB PRN (21:56)
[2024-03-07 23:33] VITALS: BMI 22.4
[2024-03-08] MEDS: Acetaminophen 325 MG TAB PO SCH ×2 (00:10→22:42)
[2024-03-08] MEDS: Ketorolac Tromethamine 30 MG (1 mL) VIAL IVP SCH ×2 (00:11→00:28)
[2024-03-08] MEDS: Sodium Chloride 0.9% 1,000 ML IV SCH ×2 (00:26→00:28)
[2024-03-08] MEDS: Piperacillin/Tazobactam 3.375 GM in Sodium Chloride 0.9% 100 ML IVPB SCH ×2 (00:27→03:24)
[2024-03-08 04:52] LABS: #Basophils 0.05 10x3/uL (0.0-0.2); %Basophils 0.4 % (0.0-1.0); %Eosinophils 0.9 % (0.0-10.0); %Monocytes 7.3 % (0.0-10.0); Hemoglobin 13.5 g/dL (14.0-18.0); Mean Corpuscular HGB CONC 32.9 g/dL (32.0-36.0); Mean Corpuscular Hemoglobin 29.4 pg (27.0-31.0); Mean Corpuscular Volume 89.3 fL (78.0-98.0); Mean Platelet Volume 9.4 fL (7.4-10.4); Platelet Count 326 10x3/uL (130-400); RBC Distribution Width 13.8 % (11.5-14.5); Red Blood Cell (RBC) Count 4.59 mill/uL (4.70-6.10)
[2024-03-08 05:05] LABS: Anion Gap 13 mmol/L (10-20); BUN (Urea Nitrogen) 11 mg/dL (8.4-25.7); Calc. Creatinine Clearance 79 mL/min (70-130); Calcium 7.1 mg/dL (7.8-10.44); Carbon Dioxide 24 mmol/L (22-29); Chloride 106 mmol/L (98-107); Estimated GFR 79; Glucose 102 mg/dL (70-105); Magnesium 1.5 mg/dL (1.6-2.6); Potassium 4.3 mmol/L (3.5-5.1); Sodium 139 mmol/L (136-145)
[2024-03-08 05:11] LABS: ALT (SGPT) 87 U/L (8-55); AST (SGOT) 93 U/L (5-34); Albumin 3.2 g/dL (3.5-5.0); Alkaline Phosphatase 70 U/L (40-110); Bilirubin, Direct 0.6 mg/dL (0.1-0.3); Bilirubin, Total 1.6 mg/dL (0.2-1.2); Phosphorus 4.8 mg/dL (2.3-4.7); Protein, Total 5.5 g/dL (6.0-8.3)
[2024-03-08] MEDS: Lactated Ringer's 1,000 ML IV SCH (09:02)
[2024-03-08] MEDS: Famotidine/PF 20 mg/2ml Vial SLOW IVP SCH (09:51)
[2024-03-08] MEDS: Magnesium 2 GM/50 ML(in water) 2 GM in Premix 1 BAG IVPB SCH (09:51)
[2024-03-08] MEDS: Morphine 2 MG/ML VIAL SLOW IVP PRN (09:59)
[2024-03-08] MEDS: Ondansetron PF 4 MG/2 ML Vial IVP PRN (11:27)
[2024-03-08] MEDS: Piperacillin/Tazobactam 3.375 GM VIAL ONE (16:04)
[2024-03-08] MEDS ORDERED: traMADol HCl 50 MG TAB PO PRN (21:43)
[2024-03-08] MEDS ORDERED: Ibuprofen 600 MG TAB PO SCH (21:45)
[2024-03-08] MEDS ORDERED: Acetaminophen 325 MG TAB PO SCH (21:45)
[2024-03-08] MEDS: Ibuprofen 600 MG TAB PO SCH (22:43)
[2024-03-08] MEDS: traMADol HCl 50 MG TAB PO PRN (23:34)
[2024-03-08] MEDS ORDERED: traMADol HCl 50 MG TAB PO SCH ×2 (23:59)
[2024-03-09] MEDS ORDERED: Ketorolac Tromethamine 30 MG (1 mL) VIAL IVP SCH (11:00)
[2024-03-09] MEDS ORDERED: cefOXitin 2 GM in Sodium Chloride 0.9% 100 ML IVPB SCH (11:00)
[2024-03-09] MEDS ORDERED: Promethazine HCl 25 MG/ML VIAL IM PRN ×2 (11:59→16:06)
[2024-03-09] MEDS ORDERED: HYDROmorphone 2 MG/ML VIAL SLOW IVP PRN (11:59)
[2024-03-09] MEDS ORDERED: Ondansetron HCl/PF 4 MG/2 ML Vial IVP PRN (11:59)
[2024-03-09] MEDS ORDERED: KETAMINE 100 MG/ML (5ML VIAL) ONE (12:03)
[2024-03-09] MEDS ORDERED: cefOXitin 2 GM VIAL ONE ×2 (12:04→14:12)
[2024-03-09] MEDS ORDERED: Sodium Chloride 0.9% 100 ML ONE (12:04)
[2024-03-09] MEDS ORDERED: Ondansetron PF 4 MG/2 ML Vial ONE (12:13)
[2024-03-09] MEDS ORDERED: Dexamethasone 4 mg/ml Vial ONE (12:13)
[2024-03-09] MEDS ORDERED: Lidocaine 2% PF 5 ML VIAL ONE (12:13)
[2024-03-09] MEDS ORDERED: SUCCINYLCHOLINE/SOD CL,ISO/PF 200 MG/10 ML SYRINGE FS ONE (12:13)
[2024-03-09] MEDS ORDERED: Rocuronium Bromide 10 MG/ML (10ML VIAL) ONE (12:13)
[2024-03-09] MEDS ORDERED: Fentanyl 250 MCG/5 ML VIAL ONE (12:14)
[2024-03-09] MEDS ORDERED: PROPOFOL 40 ML ONE (12:14)
[2024-03-09] MEDS ORDERED: Midazolam HCl 2 mg/2 ml Vial ONE (12:14)
[2024-03-09] MEDS ORDERED: Rocuronium Bromide 50 MG/5 ML VIAL ONE (12:16)
[2024-03-09] MEDS ORDERED: Glycopyrrolate 0.2 MG/ML 5 ML SYRINGE ONE (12:51)
[2024-03-09] MEDS ORDERED: SUGAMMADEX SODIUM 200 MG/2 ML VIAL ONE (15:11)
[2024-03-09] MEDS ORDERED: fentaNYL PF 100 MCG/2 ML SYRINGE ONE (15:42)
[2024-03-09] MEDS ORDERED: diphenhydrAMINE 50 MG/ML VIAL IVP PRN (16:06)
[2024-03-09] MEDS ORDERED: Naloxone HCl 0.4 mg/ml Vial IV PRN (16:06)
[2024-03-09] MEDS ORDERED: diphenhydrAMINE 50 MG/ML VIAL IM PRN (16:06)
[2024-03-09] MEDS ORDERED: Communication Order-Pharmacy FS SCH (16:15)
[2024-03-09] MEDS: Lactated Ringer's 1,000 ML IV SCH (16:59)
[2024-03-09] MEDS: Enoxaparin 40 MG (0.4 mL) SYRINGE SC SCH (20:08)
[2024-03-09] MEDS: cefOXitin 2 GM in Sodium Chloride 0.9% 100 ML IVPB SCH (21:38)
[2024-03-10 05:51] LABS: Hematocrit 43.8 % (42.0-52.0); Hemoglobin 13.9 g/dL (14.0-18.0); Mean Corpuscular HGB CONC 31.7 g/dL (32.0-36.0); Mean Corpuscular Hemoglobin 29.2 pg (27.0-31.0); Mean Platelet Volume 9.1 fL (7.4-10.4); Platelet Count 287 10x3/uL (130-400); RBC Distribution Width 13.8 % (11.5-14.5); Red Blood Cell (RBC) Count 4.76 mill/uL (4.70-6.10)
[2024-03-10 06:07] LABS: ALT (SGPT) 95 U/L (8-55); AST (SGOT) 63 U/L (5-34); Albumin 2.5 g/dL (3.5-5.0); Alkaline Phosphatase 67 U/L (40-110); Anion Gap 14 mmol/L (10-20); BUN (Urea Nitrogen) 11 mg/dL (8.4-25.7); Calc. Creatinine Clearance 79 mL/min (70-130); Calcium 7.4 mg/dL (7.8-10.44); Carbon Dioxide 28 mmol/L (22-29); Chloride 108 mmol/L (98-107); Estimated GFR 78; Globulin 2.9 g/dL (2.4-3.5); Glucose 129 mg/dL (70-105); Magnesium 1.3 mg/dL (1.6-2.6); Phosphorus 4.8 mg/dL (2.3-4.7); Potassium 5.4 mmol/L (3.5-5.1); Protein, Total 5.4 g/dL (6.0-8.3); Sodium 145 mmol/L (136-145)
[2024-03-10 06:18] LABS: Band 19 % (5-11); Hypochromia SLIGHT = 6-15 cells HPF (0-5); Large Platelets 1.9 % (0-5); Monocytes 13 % (0-10); Neutrophil 62 % (42-75); Platelet Adequacy Comment Platelets Normal; Polychromasia SLIGHT = 2-3 cells HPF (0-2); Reactive Lymphocytes 6 % (0-10)
[2024-03-10] MEDS: Dextrose 5 %-0.45 % NaCl 1,000 ML IV SCH (09:06)
[2024-03-10] MEDS: Pantoprazole 40 MG VIAL IVP SCH (09:06)
[2024-03-10] MEDS: Magnesium Sulfate In Water 4 GM in Premix 1 BAG IVPB SCH (09:06)
[2024-03-11] MEDS: Metoprolol Tartrate 5 MG (5 mL) VIAL IVP SCH ×2 (01:42→16:11)
[2024-03-11] MEDS: Metoprolol Tartrate 5 MG (5 mL) VIAL ONE (02:15)
[2024-03-11 03:52] LABS: #Basophils Less than 0.03 10x3/uL (0.0-0.2); #Eosinophils Less than 0.03 10x3/uL (0.0-0.7); %Basophils 0.1 % (0.0-1.0); %Lymphocytes 7.7 % (21.0-51.0); %Monocytes 7.3 % (0.0-10.0); %Neutrophils 84.3 % (42.0-75.0); Hematocrit 38.2 % (42.0-52.0); Mean Corpuscular HGB CONC 31.4 g/dL (32.0-36.0); Mean Corpuscular Hemoglobin 29.3 pg (27.0-31.0); Mean Corpuscular Volume 93.4 fL (78.0-98.0); Mean Platelet Volume 9.6 fL (7.4-10.4); Platelet Count 231 10x3/uL (130-400); RBC Distribution Width 14.1 % (11.5-14.5); Red Blood Cell (RBC) Count 4.09 mill/uL (4.70-6.10)
[2024-03-11] MEDS: Sodium Chloride 0.9% 1,000 ML IV SCH (04:00)
[2024-03-11 04:12] LABS: ALT (SGPT) 52 U/L (8-55); AST (SGOT) 21 U/L (5-34); Alkaline Phosphatase 61 U/L (40-110); Anion Gap 11 mmol/L (10-20); BUN (Urea Nitrogen) 18 mg/dL (8.4-25.7); Bilirubin, Total 0.8 mg/dL (0.2-1.2); Calc. Creatinine Clearance 103 mL/min (70-130); Calcium 7.3 mg/dL (7.8-10.44); Carbon Dioxide 22 mmol/L (22-29); Chloride 108 mmol/L (98-107); Estimated GFR 102; Globulin 3.3 g/dL (2.4-3.5); Glucose 167 mg/dL (70-105); Magnesium 2.2 mg/dL (1.6-2.6); Potassium 4.1 mmol/L (3.5-5.1); Protein, Total 5.3 g/dL (6.0-8.3); Sodium 137 mmol/L (136-145)
[2024-03-11] MEDS: Digoxin 0.5 MG/2 ML AMP SLOW IVP SCH (05:51)
[2024-03-11] MEDS: FENTANYL 500 MCG/10 ML VIAL 2,000 MCG in Sodium Chloride 0.9% 60 ML IV PRN (19:53)
[2024-03-13 04:36] LABS: #Basophils Less than 0.03 10x3/uL (0.0-0.2); %Basophils 0.1 % (0.0-1.0); %Eosinophils 0.7 % (0.0-10.0); %Lymphocytes 8.7 % (21.0-51.0); %Neutrophils 81.4 % (42.0-75.0); Hematocrit 33.7 % (42.0-52.0); Hemoglobin 10.7 g/dL (14.0-18.0); Mean Corpuscular HGB CONC 31.8 g/dL (32.0-36.0); Mean Corpuscular Hemoglobin 28.8 pg (27.0-31.0); Mean Corpuscular Volume 90.6 fL (78.0-98.0); Mean Platelet Volume 10.1 fL (7.4-10.4); Platelet Count 201 10x3/uL (130-400); RBC Distribution Width 13.9 % (11.5-14.5); Red Blood Cell (RBC) Count 3.72 mill/uL (4.70-6.10)
[2024-03-13 04:38] LABS: Calc. Creatinine Clearance 136 mL/min (70-130); Estimated GFR 111
[2024-03-13 04:39] LABS: Anion Gap 11 mmol/L (10-20); BUN (Urea Nitrogen) 9 mg/dL (8.4-25.7); Calcium 7.4 mg/dL (7.8-10.44); Carbon Dioxide 24 mmol/L (22-29); Chloride 106 mmol/L (98-107); Glucose 131 mg/dL (70-105); Potassium 3.4 mmol/L (3.5-5.1); Sodium 138 mmol/L (136-145)
[2024-03-13] MEDS: HYDROcodone/Acetaminophen 5/325 mg Tablet PO PRN (10:44)
[2024-03-13] MEDS: traMADol HCl 50 MG TAB PO PRN (13:51)
[2024-03-13] MEDS: Acetaminophen 325 MG TAB PO PRN (15:39)
[2024-03-13] MEDS: Melatonin 3 MG TAB PO PRN (20:04)
[2024-03-13] MEDS: diphenhydrAMINE 25 MG CAP PO PRN (22:12)
[2024-03-14] MEDS: Metoprolol Tartrate 25 MG TAB PO SCH ×2 (11:32→21:23)
[2024-03-15 05:13] LABS: Hematocrit 37.5 % (42.0-52.0); Hemoglobin 11.9 g/dL (14.0-18.0); Mean Corpuscular HGB CONC 31.7 g/dL (32.0-36.0); Mean Corpuscular Volume 91.2 fL (78.0-98.0); Mean Platelet Volume 9.7 fL (7.4-10.4); Platelet Count 346 10x3/uL (130-400); Red Blood Cell (RBC) Count 4.11 mill/uL (4.70-6.10)
[2024-03-15 06:05] LABS: Band 2 % (5-11); Lymphocytes 7 % (21-51); Metamyelocyte 2 % (0-0); Monocytes 6 % (0-10); Neutrophil 83 % (42-75); Platelet Adequacy Comment Platelets Normal; RBC Morphology Within Normal Limits
[2024-03-15 11:07] LABS: Chloride 104 mmol/L (98-107); Sodium 135 mmol/L (136-145)
[2024-03-15 11:08] LABS: Glucose 146 mg/dL (70-105)
[2024-03-15 11:10] LABS: Anion Gap 12 mmol/L (10-20); Carbon Dioxide 22 mmol/L (22-29)
[2024-03-15 11:12] LABS: BUN (Urea Nitrogen) 7 mg/dL (8.4-25.7); Calc. Creatinine Clearance 146 mL/min (70-130); Estimated GFR 113
[2024-03-15 11:22] LABS: Potassium 2.5 mmol/L (3.5-5.1)
[2024-03-15] MEDS ORDERED: Electrolyte Replacement Protocol 1 EACH FS ONE (11:23)
[2024-03-15] MEDS ORDERED: Electrolyte Replacement Protocol FS PRN (11:30)
[2024-03-15] MEDS: Potassium Chloride 20 MEQ TAB PO SCH (12:45)
[2024-03-15] MEDS: Metoprolol Tartrate 5 MG (5 mL) VIAL IVP SCH (12:46)
[2024-03-15] MEDS: D5 1/2 NS w/40 mEq KCL 1,000 ML IV SCH (12:46)
[2024-03-16 03:42] LABS: #Basophils 0.04 10x3/uL (0.0-0.2); %Basophils 0.3 % (0.0-1.0); %Eosinophils 0.3 % (0.0-10.0); %Monocytes 6.4 % (0.0-10.0); %Neutrophils 81.1 % (42.0-75.0); Hematocrit 34.4 % (42.0-52.0); Hemoglobin 11.2 g/dL (14.0-18.0); Mean Corpuscular HGB CONC 32.6 g/dL (32.0-36.0); Mean Corpuscular Hemoglobin 28.7 pg (27.0-31.0); Mean Corpuscular Volume 88.2 fL (78.0-98.0); Mean Platelet Volume 9.6 fL (7.4-10.4); Platelet Count 396 10x3/uL (130-400); RBC Distribution Width 13.9 % (11.5-14.5)
[2024-03-16 04:00] LABS: Anion Gap 12 mmol/L (10-20); BUN (Urea Nitrogen) 7 mg/dL (8.4-25.7); Calc. Creatinine Clearance 134 mL/min (70-130); Carbon Dioxide 21 mmol/L (22-29); Chloride 107 mmol/L (98-107); Estimated GFR 111; Glucose 141 mg/dL (70-105); Potassium 3.3 mmol/L (3.5-5.1); Sodium 137 mmol/L (136-145)
[2024-03-16] MEDS: Potassium Chloride 20 MEQ in Premix 1 BAG IVPB SCH (09:17)
[2024-03-17 04:50] LABS: #Basophils 0.03 10x3/uL (0.0-0.2); %Basophils 0.2 % (0.0-1.0); %Eosinophils 1.3 % (0.0-10.0); %Monocytes 6.1 % (0.0-10.0); %Neutrophils 81.7 % (42.0-75.0); Hematocrit 34.5 % (42.0-52.0); Mean Corpuscular HGB CONC 31.9 g/dL (32.0-36.0); Mean Corpuscular Hemoglobin 28.2 pg (27.0-31.0); Mean Corpuscular Volume 88.5 fL (78.0-98.0); Mean Platelet Volume 10.1 fL (7.4-10.4); Platelet Count 464 10x3/uL (130-400)
[2024-03-17 05:48] LABS: Anion Gap 13 mmol/L (10-20); BUN (Urea Nitrogen) 8 mg/dL (8.4-25.7); Calc. Creatinine Clearance 125 mL/min (70-130); Calcium 7.6 mg/dL (7.8-10.44); Carbon Dioxide 22 mmol/L (22-29); Chloride 106 mmol/L (98-107); Estimated GFR 108; Glucose 115 mg/dL (70-105); Potassium 3.5 mmol/L (3.5-5.1); Sodium 137 mmol/L (136-145)
[2024-03-17] MEDS: Potassium Chloride 20 MEQ TAB PO SCH (09:06)
[2024-03-17] MEDS: Pantoprazole 40 MG DR.TAB PO SCH (09:11)
[2024-03-18] MEDS ORDERED: Potassium Chloride 20 MEQ TAB PO SCH (07:00)
[2024-03-18] MEDS: Metoprolol Tartrate 50 MG TAB PO SCH (08:49)
[2024-03-18] MEDS: Ondansetron PF 4 MG/2 ML Vial IVP PRN (08:49)
[2024-03-18] MEDS: Piperacillin/Tazobactam 3.375 GM in Sodium Chloride 0.9% 100 ML IVPB SCH ×2 (14:52→20:16)
[2024-03-18] MEDS ORDERED: Piperacillin/Tazobactam 3.375 GM in Sodium Chloride 0.9% 100 ML IVPB SCH (18:00)
[2024-03-18] MEDS: Melatonin 3 MG TAB PO PRN (20:17)
[2024-03-19 04:43] LABS: #Basophils 0.06 10x3/uL (0.0-0.2); %Basophils 0.3 % (0.0-1.0); %Eosinophils 1.8 % (0.0-10.0); %Lymphocytes 9.6 % (21.0-51.0); %Monocytes 6.9 % (0.0-10.0); %Neutrophils 79.5 % (42.0-75.0); Hematocrit 30.9 % (42.0-52.0); Mean Corpuscular HGB CONC 32.4 g/dL (32.0-36.0); Mean Corpuscular Hemoglobin 28.6 pg (27.0-31.0); Mean Corpuscular Volume 88.3 fL (78.0-98.0); Mean Platelet Volume 9.3 fL (7.4-10.4); Platelet Count 603 10x3/uL (130-400); RBC Distribution Width 14.2 % (11.5-14.5)
[2024-03-19 04:53] LABS: INR-International Normal Ratio 1.2; Prothrombin Time 14.9 sec (12.0-14.7)
[2024-03-19 04:54] LABS: PTT 32.8 sec (22.9-36.1)
[2024-03-19 05:23] LABS: ALT (SGPT) 42 U/L (8-55); AST (SGOT) 33 U/L (5-34); Albumin 1.6 g/dL (3.5-5.0); Alkaline Phosphatase 86 U/L (40-110); Anion Gap 11 mmol/L (10-20); BUN (Urea Nitrogen) 10 mg/dL (8.4-25.7); Bilirubin, Total 0.6 mg/dL (0.2-1.2); Calc. Creatinine Clearance 111 mL/min (70-130); Calcium 7.3 mg/dL (7.8-10.44); Carbon Dioxide 23 mmol/L (22-29); Chloride 105 mmol/L (98-107); Estimated GFR 104; Globulin 3.9 g/dL (2.4-3.5); Glucose 101 mg/dL (70-105); Potassium 3.4 mmol/L (3.5-5.1); Protein, Total 5.5 g/dL (6.0-8.3); Sodium 136 mmol/L (136-145)
[2024-03-19] MEDS: Potassium Chloride 20 MEQ TAB PO SCH (09:18)
[2024-03-19] MEDS ORDERED: Iopamidol 370 76% 100 ML VIAL ONE (09:36)
[2024-03-19] MEDS ORDERED: Lidocaine 1% PF 5 ML VIAL ONE ×3 (13:09→18:52)
[2024-03-19] MEDS ORDERED: fentaNYL 50 mcg/mL 1 mL Vial ONE (13:09)
[2024-03-19] MEDS ORDERED: Midazolam HCl 2 mg/2 ml Vial ONE ×2 (13:10→20:23)
[2024-03-19] MEDS ORDERED: Lidocaine 1% MPF 2 ML VIAL ONE (15:50)
[2024-03-19] MEDS ORDERED: fentaNYL PF 100 MCG/2 ML SYRINGE ONE (16:47)
[2024-03-19] MEDS ORDERED: Rocuronium Bromide 10 MG/ML (10ML VIAL) ONE ×2 (16:48→20:14)
[2024-03-19] MEDS ORDERED: PROPOFOL 20 ML ONE (16:48)
[2024-03-19] MEDS ORDERED: PHENYLEPHRINE-NS 100 MCG/ML 10 ML SYRINGE ONE (17:09)
[2024-03-19] MEDS ORDERED: Dexamethasone 20 MG/5 ML VIAL ONE (17:11)
[2024-03-19] MEDS ORDERED: Ondansetron PF 4 MG/2 ML Vial ONE (17:11)
[2024-03-19] MEDS ORDERED: Vecuronium 10 MG VIAL ONE (18:53)
[2024-03-19] MEDS ORDERED: Dextrose 5% in Water 1,000 ML IV PRN (20:55)
[2024-03-19] MEDS ORDERED: Glucagon 1 MG/ML KIT IM PRN (20:55)
[2024-03-19] MEDS ORDERED: Dextrose 50% Abboject 50 ML SYRINGE SLOW IVP PRN (20:55)
[2024-03-19] MEDS ORDERED: Morphine 2 MG/ML VIAL SLOW IVP PRN (21:00)
[2024-03-19] MEDS ORDERED: Fentanyl BOLUS 250 ML IVPB PRN (21:00)
[2024-03-19 21:32] LABS: Actual Bicarbonate (HCO3a) 16.3 mEq/L (22-28); Base Excess (BEa) -8.6 mEq/L (-2.0 to +3.0); CO2 Tension 31.5 mmHg (35.0-45.0); Calcium, Ionized (arterial) 1.01 mmol/L (1.12-1.30); Carboxyhemoglobin (COHb) 0.2 gm% (0.0-3.0); Hematocrit-ABG 32 % (42.0-52.0); Hemoglobin (Hb) 10.8 g/dL (14.0-18.0); O2 Tension (PaO2), arterial 94.1 mmHg (80.0-100.0); Potassium - ABG Lab 4.13 mmol/L (3.70-5.30); pH, Arterial 7.331 (7.35-7.45)
[2024-03-19 21:33] LABS: ALV-art Gradient 223.025 mmHg (0-20); Puncture Site Arterial Line
[2024-03-19] MEDS: Propofol 1,000 MG/100 ML VIAL IV PRN (21:48)
[2024-03-19] MEDS: Propofol BOLUS 1,000 MG/100 ML VIAL IV PRN (21:50)
[2024-03-19] MEDS: Lorazepam 2 MG/ML VIAL SLOW IVP PRN (22:08)
[2024-03-19] MEDS: Albumin 25% 25 GM (100 mL) BOT IVPB SCH (22:22)
[2024-03-19] MEDS: Sodium Chloride 0.9% 1,000 ML IV SCH (22:51)
[2024-03-19] MEDS: Fluconazole In NaCl,Iso-Osm 200 MG in Premix 1 BAG IVPB SCH (22:55)
[2024-03-19] MEDS: Metoprolol Tartrate 50 MG TAB PO SCH (22:56)
[2024-03-19] MEDS: Fentanyl CADD 100 ML IV SCH (23:05)
[2024-03-19] MEDS: Ventilator Sedation Protocol 1 EACH FS ONE (23:16)
[2024-03-20 02:27] LABS: Hematocrit 21.1 % (42.0-52.0); Hemoglobin 6.9 g/dL (14.0-18.0); Mean Corpuscular HGB CONC 32.7 g/dL (32.0-36.0); Mean Corpuscular Hemoglobin 29.4 pg (27.0-31.0); Mean Corpuscular Volume 89.8 fL (78.0-98.0); Mean Platelet Volume 9.3 fL (7.4-10.4); Platelet Count 651 10x3/uL (130-400); RBC Distribution Width 14.4 % (11.5-14.5); Red Blood Cell (RBC) Count 2.35 mill/uL (4.70-6.10)
[2024-03-20 02:51] LABS: Anisocytosis SLIGHT = 6-15 cells HPF (0-5); Band 1 % (5-11); Hypochromia SLIGHT = 6-15 cells HPF (0-5); Large Platelets 2.9 % (0-5); Lymphocytes 2 % (21-51); Monocytes 4 % (0-10); Neutrophil 93 % (42-75); Platelet Adequacy Comment Platelets Increased; Polychromasia MODERATE = 3-4 cells HPF (0-2); Smudge Cells 3.9 %
[2024-03-20] MEDS: Albumin 25% 25 GM (100 mL) BOT IVPB SCH (04:31)
[2024-03-20 04:32] LABS: Anion Gap 18 mmol/L (10-20); BUN (Urea Nitrogen) 15 mg/dL (8.4-25.7); Calc. Creatinine Clearance 94 mL/min (70-130); Carbon Dioxide 16 mmol/L (22-29); Chloride 109 mmol/L (98-107); Estimated GFR 96; Glucose 138 mg/dL (70-105); Potassium 4.2 mmol/L (3.5-5.1); Sodium 139 mmol/L (136-145)
[2024-03-20 04:34] LABS: Calcium 6.6 mg/dL (7.8-10.44)
[2024-03-20] MEDS: Sodium Chloride 0.9% 500 ML IV SCH (04:38)
[2024-03-20] MEDS: Calcium Chloride 13.6 MEQ in Sodium Chloride 0.9% 100 ML IVPB SCH (08:13)
[2024-03-20 10:21] LABS: Hematocrit 20.1 % (42.0-52.0); Hemoglobin 6.5 g/dL (14.0-18.0); Platelet Count 538 10x3/uL (130-400)
[2024-03-20] MEDS: D5W-AA 4.25% with LYTES 1,000 ML IV SCH (11:48)
[2024-03-20 14:17] LABS: #Basophils Less than 0.03 10x3/uL (0.0-0.2); #Eosinophils Less than 0.03 10x3/uL (0.0-0.7); %Basophils 0.1 % (0.0-1.0); %Lymphocytes 8.3 % (21.0-51.0); %Monocytes 8.1 % (0.0-10.0); %Neutrophils 81.4 % (42.0-75.0); Hematocrit 22.7 % (42.0-52.0); Hemoglobin 7.3 g/dL (14.0-18.0); Mean Corpuscular HGB CONC 32.2 g/dL (32.0-36.0); Mean Corpuscular Hemoglobin 27.3 pg (27.0-31.0); Mean Platelet Volume 9.4 fL (7.4-10.4); Platelet Count 499 10x3/uL (130-400); RBC Distribution Width 17.8 % (11.5-14.5); Red Blood Cell (RBC) Count 2.67 mill/uL (4.70-6.10)
[2024-03-20 14:25] LABS: Anion Gap 11 mmol/L (10-20); BUN (Urea Nitrogen) 14 mg/dL (8.4-25.7); Calc. Creatinine Clearance 117 mL/min (70-130); Calcium 7.1 mg/dL (7.8-10.44); Carbon Dioxide 23 mmol/L (22-29); Chloride 110 mmol/L (98-107); Estimated GFR 105; Glucose 147 mg/dL (70-105); Potassium 4.1 mmol/L (3.5-5.1); Sodium 140 mmol/L (136-145)
[2024-03-20 14:45] LABS: Prothrombin Time 16.1 sec (12.0-14.7)
[2024-03-20 14:46] LABS: INR-International Normal Ratio 1.3; PTT 32.7 sec (22.9-36.1)
[2024-03-20 20:06] LABS: #Basophils Less than 0.03 10x3/uL (0.0-0.2); #Eosinophils Less than 0.03 10x3/uL (0.0-0.7); %Basophils 0.1 % (0.0-1.0); %Eosinophils 0.1 % (0.0-10.0); %Lymphocytes 8.9 % (21.0-51.0); %Monocytes 8.8 % (0.0-10.0); %Neutrophils 80.3 % (42.0-75.0); Hematocrit 21.3 % (42.0-52.0); Mean Corpuscular HGB CONC 32.9 g/dL (32.0-36.0); Mean Corpuscular Hemoglobin 27.9 pg (27.0-31.0); Mean Corpuscular Volume 84.9 fL (78.0-98.0); Mean Platelet Volume 9.5 fL (7.4-10.4); Platelet Count 476 10x3/uL (130-400); RBC Distribution Width 18.1 % (11.5-14.5); Red Blood Cell (RBC) Count 2.51 mill/uL (4.70-6.10)
[2024-03-21 05:03] LABS: #Basophils 0.03 10x3/uL (0.0-0.2); %Basophils 0.2 % (0.0-1.0); %Lymphocytes 9.6 % (21.0-51.0); %Monocytes 8.1 % (0.0-10.0); %Neutrophils 78.6 % (42.0-75.0); Hematocrit 21.4 % (42.0-52.0); Mean Corpuscular HGB CONC 32.7 g/dL (32.0-36.0); Mean Corpuscular Hemoglobin 28.3 pg (27.0-31.0); Mean Corpuscular Volume 86.6 fL (78.0-98.0); Mean Platelet Volume 9.7 fL (7.4-10.4); Platelet Count 490 10x3/uL (130-400); RBC Distribution Width 18.4 % (11.5-14.5); Red Blood Cell (RBC) Count 2.47 mill/uL (4.70-6.10)
[2024-03-21 05:44] LABS: Anion Gap 9 mmol/L (10-20); BUN (Urea Nitrogen) 16 mg/dL (8.4-25.7); Calc. Creatinine Clearance 117 mL/min (70-130); Calcium 6.9 mg/dL (7.8-10.44); Carbon Dioxide 24 mmol/L (22-29); Chloride 109 mmol/L (98-107); Estimated GFR 105; Glucose 140 mg/dL (70-105); Potassium 3.6 mmol/L (3.5-5.1); Sodium 138 mmol/L (136-145)
[2024-03-21] MEDS: Lactated Ringer's 1,000 ML IV SCH (07:53)
[2024-03-21] MEDS: Calcium Chloride 13.6 MEQ in Sodium Chloride 0.9% 100 ML IVPB SCH (07:53)
[2024-03-21] MEDS: Pantoprazole 40 MG VIAL IVP SCH (10:12)
[2024-03-21 10:28] LABS: #Basophils 0.05 10x3/uL (0.0-0.2); %Basophils 0.3 % (0.0-1.0); %Eosinophils 0.8 % (0.0-10.0); %Lymphocytes 8.4 % (21.0-51.0); %Monocytes 8.2 % (0.0-10.0); %Neutrophils 78.3 % (42.0-75.0); Hematocrit 27.6 % (42.0-52.0); Hemoglobin 9.1 g/dL (14.0-18.0); Mean Corpuscular Hemoglobin 28.2 pg (27.0-31.0); Mean Corpuscular Volume 85.4 fL (78.0-98.0); Mean Platelet Volume 9.4 fL (7.4-10.4); Platelet Count 554 10x3/uL (130-400); RBC Distribution Width 17.4 % (11.5-14.5); Red Blood Cell (RBC) Count 3.23 mill/uL (4.70-6.10)
[2024-03-21] MEDS: Morphine 4 MG/ML VIAL SLOW IVP PRN ×2 (10:39→14:02)
[2024-03-21] MEDS: Ketorolac Tromethamine 30 MG (1 mL) VIAL IVP SCH (12:17)
[2024-03-21] MEDS: Cefepime 2 GM in Sodium Chloride 0.9% 100 ML IVPB SCH (16:47)
[2024-03-21 18:15] LABS: #Basophils 0.04 10x3/uL (0.0-0.2); %Basophils 0.3 % (0.0-1.0); %Eosinophils 1.2 % (0.0-10.0); %Lymphocytes 9.8 % (21.0-51.0); %Monocytes 7.6 % (0.0-10.0); %Neutrophils 78.1 % (42.0-75.0); Hematocrit 26.3 % (42.0-52.0); Hemoglobin 8.7 g/dL (14.0-18.0); Mean Corpuscular HGB CONC 33.1 g/dL (32.0-36.0); Mean Corpuscular Hemoglobin 28.2 pg (27.0-31.0); Mean Corpuscular Volume 85.4 fL (78.0-98.0); Mean Platelet Volume 9.2 fL (7.4-10.4); Platelet Count 559 10x3/uL (130-400); RBC Distribution Width 17.6 % (11.5-14.5); Red Blood Cell (RBC) Count 3.08 mill/uL (4.70-6.10)
[2024-03-21] MEDS: Scopolamine 1 mg/72 hour Patch TD SCH (18:25)
[2024-03-21] MEDS: Ondansetron PF 4 MG/2 ML Vial IVP PRN (18:25)
[2024-03-22 05:17] LABS: #Basophils 0.04 10x3/uL (0.0-0.2); %Basophils 0.3 % (0.0-1.0); %Eosinophils 2.7 % (0.0-10.0); %Lymphocytes 10.1 % (21.0-51.0); %Monocytes 7.5 % (0.0-10.0); %Neutrophils 75.8 % (42.0-75.0); Hematocrit 25.4 % (42.0-52.0); Hemoglobin 8.2 g/dL (14.0-18.0); Mean Corpuscular HGB CONC 32.3 g/dL (32.0-36.0); Mean Corpuscular Volume 86.7 fL (78.0-98.0); Mean Platelet Volume 9.2 fL (7.4-10.4); Platelet Count 577 10x3/uL (130-400); RBC Distribution Width 17.1 % (11.5-14.5); Red Blood Cell (RBC) Count 2.93 mill/uL (4.70-6.10)
[2024-03-22 05:36] LABS: Anion Gap 9 mmol/L (10-20); BUN (Urea Nitrogen) 16 mg/dL (8.4-25.7); Calc. Creatinine Clearance 157 mL/min (70-130); Calcium 7.1 mg/dL (7.8-10.44); Carbon Dioxide 28 mmol/L (22-29); Chloride 107 mmol/L (98-107); Estimated GFR 114; Glucose 116 mg/dL (70-105); Potassium 3.5 mmol/L (3.5-5.1); Sodium 140 mmol/L (136-145)
[2024-03-22] MEDS ORDERED: Potassium Chloride 20 MEQ TAB PO SCH (08:00)
[2024-03-22] MEDS: Potassium Chloride 40 MEQ in Premix 1 BAG IVPB SCH (08:15)
[2024-03-22] MEDS: Enoxaparin 40 MG (0.4 mL) SYRINGE SC SCH (19:53)
[2024-03-23 05:16] LABS: #Basophils 0.07 10x3/uL (0.0-0.2); %Basophils 0.5 % (0.0-1.0); %Lymphocytes 10.8 % (21.0-51.0); %Monocytes 6.3 % (0.0-10.0); Hematocrit 29.2 % (42.0-52.0); Hemoglobin 9.4 g/dL (14.0-18.0); Mean Corpuscular HGB CONC 32.2 g/dL (32.0-36.0); Mean Corpuscular Hemoglobin 27.9 pg (27.0-31.0); Mean Corpuscular Volume 86.6 fL (78.0-98.0); Mean Platelet Volume 9.3 fL (7.4-10.4); Platelet Count 670 10x3/uL (130-400); RBC Distribution Width 15.9 % (11.5-14.5); Red Blood Cell (RBC) Count 3.37 mill/uL (4.70-6.10)
[2024-03-23 05:42] LABS: ALT (SGPT) 22 U/L (8-55); AST (SGOT) 21 U/L (5-34); Alkaline Phosphatase 70 U/L (40-110); Anion Gap 11 mmol/L (10-20); BUN (Urea Nitrogen) 13 mg/dL (8.4-25.7); Bilirubin, Total 0.4 mg/dL (0.2-1.2); Calc. Creatinine Clearance 0 mL/min (70-130); Calcium 7.5 mg/dL (7.8-10.44); Carbon Dioxide 28 mmol/L (22-29); Chloride 102 mmol/L (98-107); Estimated GFR 115; Globulin 3.6 g/dL (2.4-3.5); Glucose 115 mg/dL (70-105); Potassium 4.1 mmol/L (3.5-5.1); Protein, Total 5.6 g/dL (6.0-8.3); Sodium 137 mmol/L (136-145)
[2024-03-23] MEDS ORDERED: traMADol HCl 50 MG TAB PO PRN (08:55)
[2024-03-23] MEDS ORDERED: Acetaminophen 325 MG TAB PO SCH (09:00)
[2024-03-23] MEDS ORDERED: PYRIDOXINE HCL 100 MG PO SCH (10:00)
[2024-03-23] MEDS ORDERED: pyridOXINE 50 MG (B6) TAB PO SCH (10:15)
[2024-03-23] MEDS ORDERED: traMADol HCl 50 MG TAB PO SCH (12:00)
[2024-03-23] MEDS: Acetaminophen 500 MG TAB PO SCH (12:53)
[2024-03-23] MEDS: traMADol HCl 50 MG TAB PO PRN (12:54)
[2024-03-24 08:54] LABS: #Basophils 0.04 10x3/uL (0.0-0.2); %Basophils 0.3 % (0.0-1.0); %Eosinophils 1.6 % (0.0-10.0); %Lymphocytes 10.8 % (21.0-51.0); %Monocytes 6.5 % (0.0-10.0); %Neutrophils 78.7 % (42.0-75.0); Hematocrit 29.4 % (42.0-52.0); Hemoglobin 9.2 g/dL (14.0-18.0); Mean Corpuscular HGB CONC 31.3 g/dL (32.0-36.0); Mean Corpuscular Hemoglobin 27.2 pg (27.0-31.0); Platelet Count 753 10x3/uL (130-400); Red Blood Cell (RBC) Count 3.38 mill/uL (4.70-6.10)
[2024-03-24] MEDS ORDERED: ASCORBIC ACID 100 MG PO SCH (09:00)
[2024-03-24] MEDS ORDERED: Non-Formulary Item 1 EACH (Ergocalciferol (Vitamin D2) [Vitamin D2] 50 MCG Capsule) PO SCH (09:00)
[2024-03-24] MEDS ORDERED: VITAMIN K2 100 MCG PO SCH ×2 (09:00)
[2024-03-24] MEDS ORDERED: ERGOCALCIFEROL 50 MCG PO SCH (09:00)
[2024-03-25 05:42] LABS: #Basophils 0.08 10x3/uL (0.0-0.2); %Basophils 0.5 % (0.0-1.0); %Eosinophils 1.4 % (0.0-10.0); %Lymphocytes 8.2 % (21.0-51.0); %Monocytes 5.8 % (0.0-10.0); %Neutrophils 82.1 % (42.0-75.0); Hemoglobin 9.7 g/dL (14.0-18.0); Mean Corpuscular HGB CONC 32.3 g/dL (32.0-36.0); Mean Corpuscular Hemoglobin 27.8 pg (27.0-31.0); Platelet Count 785 10x3/uL (130-400); RBC Distribution Width 14.6 % (11.5-14.5); Red Blood Cell (RBC) Count 3.49 mill/uL (4.70-6.10)
[2024-03-25 05:59] LABS: Anion Gap 11 mmol/L (10-20); BUN (Urea Nitrogen) 11 mg/dL (8.4-25.7); Calc. Creatinine Clearance 141 mL/min (70-130); Calcium 7.8 mg/dL (7.8-10.44); Carbon Dioxide 30 mmol/L (22-29); Chloride 101 mmol/L (98-107); Estimated GFR 110; Glucose 90 mg/dL (70-105); Magnesium 1.9 mg/dL (1.6-2.6); Potassium 4.3 mmol/L (3.5-5.1); Sodium 138 mmol/L (136-145)
[2024-03-25] MEDS: Pantoprazole 40 MG DR.TAB PO SCH (08:35)
[2024-03-25] MEDS: Ampicillin/Sulbactam 3 GM in Sodium Chloride 0.9% 100 ML IVPB SCH (13:53)
[2024-03-26 05:22] LABS: #Basophils 0.07 10x3/uL (0.0-0.2); %Basophils 0.3 % (0.0-1.0); %Eosinophils 0.2 % (0.0-10.0); %Lymphocytes 6.5 % (21.0-51.0); %Monocytes 6.4 % (0.0-10.0); %Neutrophils 85.1 % (42.0-75.0); Hematocrit 31.8 % (42.0-52.0); Hemoglobin 10.2 g/dL (14.0-18.0); Mean Corpuscular HGB CONC 32.1 g/dL (32.0-36.0); Mean Corpuscular Hemoglobin 27.6 pg (27.0-31.0); Mean Corpuscular Volume 86.2 fL (78.0-98.0); Mean Platelet Volume 8.9 fL (7.4-10.4); Platelet Count 789 10x3/uL (130-400); RBC Distribution Width 14.4 % (11.5-14.5); Red Blood Cell (RBC) Count 3.69 mill/uL (4.70-6.10)
[2024-03-26 05:39] LABS: Anion Gap 12 mmol/L (10-20); BUN (Urea Nitrogen) 10 mg/dL (8.4-25.7); Calc. Creatinine Clearance 147 mL/min (70-130); Calcium 6.9 mg/dL (7.8-10.44); Carbon Dioxide 25 mmol/L (22-29); Chloride 105 mmol/L (98-107); Estimated GFR 115; Glucose 84 mg/dL (70-105); Potassium 3.4 mmol/L (3.5-5.1); Sodium 139 mmol/L (136-145)
[2024-03-27 06:03] LABS: #Basophils 0.04 10x3/uL (0.0-0.2); %Basophils 0.2 % (0.0-1.0); %Eosinophils 0.6 % (0.0-10.0); %Lymphocytes 9.8 % (21.0-51.0); %Neutrophils 80.3 % (42.0-75.0); Mean Corpuscular HGB CONC 32.3 g/dL (32.0-36.0); Mean Corpuscular Hemoglobin 27.8 pg (27.0-31.0); Mean Corpuscular Volume 86.1 fL (78.0-98.0); Mean Platelet Volume 8.7 fL (7.4-10.4); Platelet Count 744 10x3/uL (130-400); RBC Distribution Width 14.6 % (11.5-14.5)
[2024-03-27 06:24] LABS: Anion Gap 12 mmol/L (10-20); BUN (Urea Nitrogen) 13 mg/dL (8.4-25.7); Calc. Creatinine Clearance 110 mL/min (70-130); Calcium 7.7 mg/dL (7.8-10.44); Carbon Dioxide 30 mmol/L (22-29); Chloride 101 mmol/L (98-107); Estimated GFR 105; Glucose 106 mg/dL (70-105); Potassium 3.8 mmol/L (3.5-5.1); Sodium 139 mmol/L (136-145)
[2024-03-27] MEDS: Ibuprofen 600 MG TAB PO PRN (10:12)
[2024-03-27 10:28] VITALS: BMI 21.7
[2024-03-28 05:41] LABS: #Basophils 0.05 10x3/uL (0.0-0.2); %Basophils 0.4 % (0.0-1.0); %Eosinophils 0.7 % (0.0-10.0); %Lymphocytes 9.9 % (21.0-51.0); %Monocytes 8.3 % (0.0-10.0); Hemoglobin 10.4 g/dL (14.0-18.0); Mean Corpuscular HGB CONC 31.5 g/dL (32.0-36.0); Mean Corpuscular Hemoglobin 27.2 pg (27.0-31.0); Mean Corpuscular Volume 86.4 fL (78.0-98.0); Mean Platelet Volume 8.8 fL (7.4-10.4); Platelet Count 721 10x3/uL (130-400); RBC Distribution Width 14.5 % (11.5-14.5); Red Blood Cell (RBC) Count 3.82 mill/uL (4.70-6.10)
[2024-03-28 06:15] LABS: Anion Gap 15 mmol/L (10-20); BUN (Urea Nitrogen) 13 mg/dL (8.4-25.7); Calc. Creatinine Clearance 102 mL/min (70-130); Calcium 7.9 mg/dL (7.8-10.44); Carbon Dioxide 30 mmol/L (22-29); Chloride 100 mmol/L (98-107); Estimated GFR 103; Glucose 98 mg/dL (70-105); Potassium 3.7 mmol/L (3.5-5.1); Sodium 141 mmol/L (136-145)
[2024-03-28 08:26] VITALS: BP 152/74; TEMP 97.2
== END 2024-03-28 11:40 | disposition home or self-care (01) | DRG 329 ==
LOC: ERS 17:32 → MSONC 21:39 → 2SE 03-11 01:12 → 2NO 03-11 21:35 → CCU 03-19 20:37 → SURG B 03-22 10:56
PROVIDERS: ADMIT Specialist; ATTEND Specialist
PROC: 0DBB0ZZ Excision of Ileum, Open Approach (ICD-10-PCS; 2024-03-09)
PROC: 0DNW4ZZ Release Peritoneum, Percutaneous Endoscopic Approach (ICD-10-PCS; 2024-03-09)
PROC: 02HV33Z Insertion of Infusion Device into Superior Vena Cava, Percutaneous Approach (ICD-10-PCS; 2024-03-19)
PROC: 5A1935Z Respiratory Ventilation, Less than 24 Consecutive Hours (ICD-10-PCS; 2024-03-19)
PROC: 30233K1 Transfusion of Nonautologous Frozen Plasma into Peripheral Vein, Percutaneous Approach (ICD-10-PCS; principal; 2024-03-20)
PROC: 30233N1 Transfusion of Nonautologous Red Blood Cells into Peripheral Vein, Percutaneous Approach (ICD-10-PCS; 2024-03-20)
PROC: 4A033R1 Measurement of Arterial Saturation, Peripheral, Percutaneous Approach (ICD-10-PCS; 2024-03-20)
DX: K56.51 Intestinal adhesions [bands], with partial obstruction (principal); J95.821 Acute postprocedural respiratory failure; K65.1 Peritoneal abscess; N39.0 Urinary tract infection, site not specified; T81.49XA Infection following a procedure, other surgical site, initial encounter; F10.90 Alcohol use, unspecified, uncomplicated; F17.210 Nicotine dependence, cigarettes, uncomplicated; I48.0 Paroxysmal atrial fibrillation; X58.XXXA Exposure to other specified factors, initial encounter; E87.6 Hypokalemia; D64.9 Anemia, unspecified; K56.7 Ileus, unspecified; R53.81 Other malaise; Z90.49 Acquired absence of other specified parts of digestive tract; Z88.1 Allergy status to other antibiotic agents; N20.0 Calculus of kidney; N26.9 Renal sclerosis, unspecified; R35.0 Frequency of micturition
CPT/HCPCS: 36415; 36416; 36430; 43753; 71045; 74018; 74019; 74176; 74177; 74250; 76380; 80048; 80053; 80076; 81001; 82805; 83690; 83735; 84100; 85025; 85384; 85610; 85730; 86850; 86900; 86901; 87070; 87077; 87086; 87186; 87205; 88307; 88309; 93005; 93010; 93306; 94002; 94003; 96374; 96375; 96376; 97139; A4314; A4649; C1751; C1776; G0103; J0295; J0692; J0694; J0696; J1100; J1450; J1642; J1650; J1885; J2060; J2250; J2270; J2272; J2405; J2470; J2543; J2550; J2704; J3010; J3475; J3480; J3490; J7030; J7042; J7120; P9016; P9047; P9059; Q0169; Q9967